=== PATIENT | male | born 1980 | race Two or more races ===

== ENCOUNTER 2016-09-25 08:36 | Emergency (ER) | payer BC ==
[2016-09-25 08:47] VITALS: BP 128/82
[2016-09-25] MEDS ORDERED: Naproxen 500 MG Tab PO ONE (09:05)
[2016-09-25] MEDS ORDERED: Penicillin V Potassium 500 MG Tab PO ONE (09:05)
--- NOTE | 2016-09-25 09:07 | EDM.PDOC ---
ED HPI GENERAL MEDICAL PROBLEM - General Chief Complaint: ENT Problem Stated Complaint: PAIN IN RIGHT SIDE OF FACE Time Seen by Provider: 09/25/16 08:48 Source of Information: Reports: Patient, RN notes reviewed History Limitations: Reports: No Limitations - History of Present Illness INITIAL COMMENTS - FREE TEXT/NARRATIVE: The patient states that she woke up this morning with right upper dental pain and right facial swelling. He states that he had no problem last night. He acknowledges that he has known dental problems for many years, but has not seen a dentist in about 5 years. No recent fever, nausea, vomiting, constipation, or diarrhea. 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 Right Oral/Mouth Pain Score (Numeric/FACES): 8 - Related Data Allergies Allergy/AdvReac Type Severity Reaction Status Date / Time penicillin Allergy Other Verified 09/25/16 08:42 Home Meds: Home Meds Naproxen 500 mg PO Q12H PRN #20 tablet 09/25/16 [Rx] Penicillin V Potassium [IJD: Penicillin V Potassium] 500 mg PO Q6H #40 tab 09/25 [Rx] Past Medical History Musculoskeletal History: Reports: Other (see below) Other Musculoskeletal History: left shoulder dislocation; left wrist fracture - Past Surgical History GI Surgical History: Reports: Hernia, inguinal (bilateral) Musculoskeletal Surgical History: Reports: Other (see below) (Left knee benign tumor excision) Social & Family History - Tobacco Use Smoking Status *Q: Current Every Day Smoker Years of Tobacco use: 21 Packs/Tins Daily: 0.5 - Caffeine Use Caffeine Use: Reports: Coffee, Energy drinks, Tea - Alcohol Use Alcohol Use History: Yes Alcohol Use Frequency: Binges - Recreational Drug Use Recreational Drug Use: No - Living Situation & Occupation Living situation: Reports: , with spouse Occupation: employed ([employer]) ED ROS ENT - Review of Systems Review Of Systems: See Below Constitutional: Reports: No Symptoms HEENT: Reports: No Symptoms Respiratory: Reports: No Symptoms Cardiovascular: Reports: No Symptoms Endocrine: Reports: No Symptoms GI/Abdominal: Reports: No Symptoms : Reports: No Symptoms Musculoskeletal: Reports: No Symptoms Skin: Reports: No Symptoms Neurological: Reports: No Symptoms Psychiatric: Reports: No Symptoms Hematologic/Lymphatic: Reports: No Symptoms Immunologic: Reports: No Symptoms ED EXAM, ENT - Physical Exam Exam: See Below Exam Limited By: No Limitations General Appearance: Alert, WD/WN, No Apparent Distress Eye Exam: Bilateral Eye: Normal Inspection Ears: Normal External Exam, Normal Canal, Hearing Grossly Normal, Normal TMs Nose: Normal Inspection, Normal Mucousa, No Blood Mouth/Throat: Normal Inspection, Normal Lips, Other (Tooth #1 absent. Teeth #3 , 4, 5 with fillings. Gingival swelling noted about teeth # 4 and 5. Tooth # 13 absent. Teeth #14, 15 with fillings. Tooth #18 absent. Tooth #19 with filling. Tooth #29 absent. Tooth #30 with filling. Tooth #31 absent. Tooth # 32 with filling.) Head: Atraumatic, Facial Swelling (right), Facial Tenderness Neck: Normal Inspection, Supple, Non-Tender, Full Range of Motion Psychiatric: Normal Affect Skin: Warm, Dry, Intact, Normal Color, No Rash Lymphatic: No Adenopathy Course - Vital Signs Last Recorded V/S: Last Vital Signs Temp 36.8 C 09/25/16 08:43 Pulse 68 09/25/16 08:43 Resp 18 09/25/16 08:43 BP 128/82 09/25/16 08:43 Pulse Ox 99 09/25/16 08:43 - Orders/Labs/Meds Meds: Medications Discontinued Medications Generic Name Dose Route Start Last Admin Trade Name Elizabeth PRN Reason Stop Dose Admin Naproxen 500 mg 09/25/16 09:05 09/25/16 09:11 Naprosyn PO 09/25/16 09:06 500 mg ONETIME ONE Administration Penicillin V Potassium 500 mg 09/25/16 09:05 09/25/16 09:12 Veetids PO 09/25/16 09:06 500 mg ONETIME ONE Administration - Re-Assessments/Exams Free Text/Narrative Re-Assessment/Exam: 09/25/16 09:06 The patient reports an allergy to penicillin, but states that he was told of a reaction by his mother, but he does not recall ever asked for having had penicillin. It is indicating 96% likelihood that the patient is not allergic to penicillin under the circumstances. The patient has agreed that we will start the patient on penicillin here today. I will keep him in the ER for about half an hour to observe if he has any reaction. If he does not, we'll discharge him home with prescriptions for penicillin and naproxen. The need to followup with a dentist was emphasized. 09/25/16 09:46 It has been over 30 minutes since the patient was given oral penicillin, with no adverse reaction. He is not allergic to penicillin. He will be discharged home with a prescription for penicillin and naproxen, along with a list of dentists. Departure - Departure Time of Disposition: 09:47 Disposition: Home, Self-Care 01 Condition: fair Clinical Impression: Dental infection - Discharge Information Prescriptions: Naproxen 500 mg PO Q12H PRN #20 tablet PRN Reason: Pain Penicillin V Potassium [IJD: Penicillin V Potassium] 500 mg PO Q6H #40 tab Instructions: Dental Abscess, [id number] Referrals: PCP,None [Primary Care Provider] - Forms: ED Department Discharge Additional Instructions: You were seen in the emergency room for right upper dental pain and right facial swelling. On examination, it appears that you have a dental infection. You have been started on the antibiotic penicillin. Take one tablet every 6 hours, as prescribed. Finish the entire prescription unless told otherwise by a dentist. You have been started on the pain medicine naproxen. Take one tablet every 12 hours, with food, as prescribed. It is IMPERATIVE that you followup with a dentist as soon as possible. You have been provided a list of dentists. The medicines that you have been prescribed will not cure the underlying infection. If any other problems, please do not hesitate to return to the ER.
== END 2016-09-25 10:01 | disposition home or self-care (01) ==
LOC: JD.ED 08:36
DX: K04.7 Periapical abscess without sinus (principal); F17.210 Nicotine dependence, cigarettes, uncomplicated; Z88.0 Allergy status to penicillin
CPT/HCPCS: 99283; A9270

== ENCOUNTER 2016-11-05 17:29 | Emergency (ER) | payer BC ==
[2016-11-05 17:56] VITALS: BP 126/88
--- NOTE | 2016-11-05 18:23 | EDM.PDOC ---
ED HPI GENERAL MEDICAL PROBLEM - General Chief Complaint: Chest Pain Stated Complaint: RIB INJURY Time Seen by Provider: 11/05/16 18:00 Source of Information: Reports: Patient History Limitations: Reports: No Limitations - History of Present Illness INITIAL COMMENTS - FREE TEXT/NARRATIVE: 36-year-old male presents the ED with complaints of left rib pain. He reports he was injured in the workplace 2 days ago. He was struck by the butt end of a piece of drill stem pipe accidentally. He has had trouble breathing ever since time of injury. He states that he was knocked to the floor but he did was not knocked off the platform. He is pain is much worse today. He denies hemoptysis or cough. He has he also has an injury to the left hand with prominence of the third MCP joint from a work-related injury over a month ago. He was when if he could get an x-ray of his hand. splinting respirations on the left side. Onset Date: 11/03/16 Duration: Day(s): Location: Reports: Chest Quality: Reports: Sharp, Stabbing Severity: Moderate Improves with: Reports: Rest Worsens with: Reports: Other, Movement Context: Reports: Trauma. Denies: Activity (Deep breaths), Exercise, Lifting, Sick Contact, Other (Blunt force trauma in the workplace) Associated Symptoms: Reports: Chest Pain. 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 Chest Pain Score (Numeric/FACES): 10 - Related Data Allergies Allergy/AdvReac Type Severity Reaction Status Date / Time No Known Allergies Allergy Verified 11/05/16 17:53 Home Meds: Home Meds Naproxen 500 mg PO Q12H PRN #20 tablet 09/25/16 [Rx] Penicillin V Potassium [IJD: Penicillin V Potassium] 500 mg PO Q6H #40 tab 09/25 [Rx] oxyCODONE HCl/Acetaminophen [Percocet 5-325 mg Tablet] 1 - 2 each PO Q4H PRN # 24 tablet 11/05/16 [Rx] Past Medical History - Past Health History Medical/Surgical History: Denies Medical/Surgical History Musculoskeletal History: Reports: Other (See Below) Other Musculoskeletal History: left shoulder dislocation; left wrist fracture - Past Surgical History GI Surgical History: Reports: Hernia, Inguinal Musculoskeletal Surgical History: Reports: Other (See Below) Social & Family History - Tobacco Use Smoking Status *Q: Current Every Day Smoker Years of Tobacco use: 20 Packs/Tins Daily: 0.5 Used Tobacco, but Quit: No - Caffeine Use Caffeine Use: Reports: Coffee, Energy Drinks, Soda, Tea - Recreational Drug Use Recreational Drug Use: No - Living Situation & Occupation Living situation: Reports: , with Spouse Occupation: Employed ED ROS GENERAL - Review of Systems Review Of Systems: See Below Constitutional: Denies: Fever, Chills, Malaise, Weakness, Fatigue, Decreased Appetite, Weight Loss HEENT: Reports: No Symptoms Respiratory: Reports: Shortness of Breath, Pleuritic Chest Pain, Other (Every breath hurts any pleuritic pain left chest wall). Denies: Cough, Sputum Cardiovascular: Reports: No Symptoms Endocrine: Reports: No Symptoms GI/Abdominal: Reports: No Symptoms Musculoskeletal: Reports: Other (Left chest wall pain from rib injury. Has swelling and deformity of the 3rd MCP joint of his left hand. This injury as a month or more old.) Skin: Reports: No Symptoms Neurological: Reports: No Symptoms Psychiatric: Reports: No Symptoms Hematologic/Lymphatic: Reports: No Symptoms Immunologic: Reports: No Symptoms ED EXAM, GENERAL - Physical Exam Exam: See Below Exam Limited By: Language Barrier General Appearance: Alert (Mild language barrier.), WD/WN, Mild Distress (He is splinting respirations on the left side) Eye Exam: Bilateral Eye: Normal Inspection Throat/Mouth: Normal Inspection, Normal Lips, Normal Oropharynx Head: Atraumatic, Normocephalic Neck: Normal Inspection, Supple, Non-Tender, Full Range of Motion. No: Lymphadenopathy (L), Lymphadenopathy (R) Respiratory/Chest: Normal Breath Sounds, Respiratory Distress, Splinting (On the left side), Other (Very tender to touch from ribs 5-8 mid axillary line on the left side. No obvious deformities contusions or abrasions are appreciated this area. Of note he is a very small stature 0 easily visible under the skin. No subcutaneous emphysema evident.) Cardiovascular: Normal Peripheral Pulses, Regular Rate, Rhythm, No Edema, No Murmur Back Exam: Normal Inspection, Full Range of Motion. No: CVA Tenderness (L), CVA Tenderness (R) Extremities: Redness, Other (Has swelling of the MCP joint third of the left hand but with a healing fracture.) Neurological: Alert, Oriented, CN II-XII Intact, Normal Cognition, Normal Gait, Normal Reflexes, No Motor/Sensory Deficits Psychiatric: Normal Affect, Normal Mood Skin Exam: Warm, Dry, Intact, Normal Color, No Rash Course - Vital Signs Last Recorded V/S: Last Vital Signs Temp 36.8 C 11/05/16 17:53 Pulse 94 11/05/16 17:53 Resp 18 11/05/16 17:53 BP 126/88 11/05/16 17:53 Pulse Ox 96 11/05/16 17:53 - Orders/Labs/Meds Orders: Active Orders 24 hr Category Date Time Status Hand Comp Min 3V Lt [CR] Stat Exams 11/05/16 18:05 Taken Ribs 2V w Chest Lt [CR] Stat Exams 11/05/16 18:03 Taken - Radiology Interpretation Free Text/Narrative:: 36-year-old male reports to the ED with a work-related injury that occurred 2 days ago. He states he was struck by a piece of drill stem in the left axilla injuring his ribs [address] Catalan but it did not did not knock him off the platform. He has pain with every inspiration. On examination he is a thin stature and no obvious contusions abrasions or hematomas evident in the left axilla. Pain is from ribs 5-8 midaxillary line. He also has swelling of the third MCP joint of his left hand from an injury in the workplace a month ago. He is requesting x-ray of the hand as well. Plan chest x-ray with left rib detail. X-ray left hand 3 view. - Re-Assessments/Exams Free Text/Narrative Re-Assessment/Exam: 11/05/16 18:36 x-rays of the chest and extra views of the left ribs do not reveal any fractures or pneumothorax or pulmonary contusion. X-rays of his left and also proved to be negative for any fracture in the head of the third metacarpal. He will thus be treated conservatively. I did advise him if the swelling of the third metacarpal does not go back to normal in the next 6 months then he does need assessment for rheumatoid arthritis. However he claims that the injury first occurred from direct blow to the area or trauma. I will give him Percocet 5//25 tablets to be used 1 tablet every 4-6 hours as necessary for pain relief. 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 He reports he is off job for the next few days anyways. Departure - Departure Time of Disposition: 18:48 Disposition: Home, Self-Care 01 Condition: Fair Clinical Impression: Contusion of rib on left side Qualifiers: Encounter type: initial encounter Qualified Code(s): S20.212A - Contusion of left front wall of thorax, initial encounter Contusion of left hand Qualifiers: Encounter type: initial encounter Qualified Code(s): S60.222A - Contusion of left hand, initial encounter Prescriptions: oxyCODONE HCl/Acetaminophen [Percocet 5-325 mg Tablet] 1 - 2 each PO Q4H PRN # 24 tablet PRN Reason: pain relief. Instructions: Rib Contusion Referrals: PCP,None [Primary Care Provider] - Forms: ED Department Discharge Additional Instructions: Evaluation in the emergency room today in regards to blunt trauma to the left rib cage that occurred 2 days ago in the workplace. X-rays of the ribs with rib detail did not reveal any broken ribs. Therefore blunt trauma has occurred causing bruised ribs only. It will still take 10-14 days to fully recover from this injury. Suggest Aleve 2 tablets every 8 hours and may use Percocet tablets one or 2 every 6 hours for pain relief if needed. Of note it's unlikely that he will be allowed to work on the [facility] site if you have strong pain medication on board. X-ray of your left hand did not reveal any fractures in the hand either. There is marked swelling of the third metacarpal head which appears to be secondary to traumatic effusion or injury to the joint. However if it does not settle down over the next 6 months then you would need lab tests to rule out the beginnings of rheumatoid arthritis. - My Orders Last 24 Hours: My Active Orders 11/05/16 18:03 Ribs 2V w Chest Lt [CR] Stat 11/05/16 18:05 Hand Comp Min 3V Lt [CR] Stat - Assessment/Plan Last 24 Hours: My Active Orders 11/05/16 18:03 Ribs 2V w Chest Lt [CR] Stat 11/05/16 18:05 Hand Comp Min 3V Lt [CR] Stat
--- NOTE | 2016-11-06 07:43 | CR ---
Left hand: Four views of the left hand were obtained. Comparison: No previous study. No fracture, dislocation or other bony abnormality is seen. Impression: 1. No abnormality is identified on left hand study. Diagnostic code #1
--- NOTE | 2016-11-06 07:43 | CR ---
Chest and left ribs: Frontal view of the chest was obtained as well as 2 views of the left ribs. Comparison: No previous study. Heart size and mediastinum are normal. Lungs are clear. No pneumothorax is seen. No discrete fracture or left-sided rib abnormality is appreciated. Impression: 1. Nothing acute is identified on frontal chest x-ray. No discrete left-sided rib abnormality is appreciated. Nondisplaced fracture could be missed. Diagnostic code #1
== END 2016-11-05 19:00 | disposition home or self-care (01) ==
LOC: JD.ED 17:29
DX: S20.212A Contusion of left front wall of thorax, initial encounter (principal); S60.222A Contusion of left hand, initial encounter; F17.210 Nicotine dependence, cigarettes, uncomplicated; Z98.890 Other specified postprocedural states; W22.8XXA Striking against or struck by other objects, initial encounter
CPT/HCPCS: 71101-26-LT; 71101-LT; 73130-26-LT; 73130-LT; 99283

== ENCOUNTER 2017-08-18 16:08 | Emergency (ER) | payer BC ==
[2017-08-18 16:20] VITALS: BP 114/80
[2017-08-18] MEDS ORDERED: Orphenadrine 100 MG Tab.ER PO STA (16:57)
[2017-08-18] MEDS ORDERED: Ketorolac 60 MG/2 ML SDV IM ONE (16:57)
--- NOTE | 2017-08-18 17:07 | EDM.PDOC ---
ED HPI GENERAL MEDICAL PROBLEM - General Chief Complaint: Back Pain or Injury Stated Complaint: BACK PAIN Time Seen by Provider: 08/18/17 16:40 Source of Information: Reports: Patient History Limitations: Reports: No Limitations, Language Barrier (patient speaks sao tomean but question comprehension) - History of Present Illness INITIAL COMMENTS - FREE TEXT/NARRATIVE: 36-year-old male presents for evaluation and treatment of mid to lower back pain. Patient reports that the back pain started this morning. States it woke him from sleep. States is primarily located on the left side. Has trouble describing the type of pain. Denies any previous back problems. Denies any recent trauma. No nausea, vomiting, dysuria, hematuria, numbness or tingling to the legs. 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 States he tried some Tylenol earlier for the pain but cannot be relief with this. 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 08/18/17 [Rx] Orphenadrine [Norflex] 100 mg PO BID PRN #20 tab.er 08/18/17 [Rx] Past Medical History - Past Health History Medical/Surgical History: Denies Medical/Surgical History Musculoskeletal History: Reports: Other (See Below) Other Musculoskeletal History: left shoulder dislocation; left wrist fracture - Past Surgical History GI Surgical History: Reports: Hernia, Inguinal Musculoskeletal Surgical History: Reports: Other (See Below) Social & Family History - Tobacco Use Smoking Status *Q: Current Every Day Smoker Years of Tobacco use: 20 Packs/Tins Daily: 0.5 Used Tobacco, but Quit: No - Caffeine Use Caffeine Use: Reports: Coffee, Energy Drinks, Soda, Tea - Recreational Drug Use Recreational Drug Use: No - Living Situation & Occupation Living situation: Reports: , with Spouse Occupation: Employed ED ROS GENERAL - Review of Systems Review Of Systems: See Below Constitutional: Denies: Fever, Chills GI/Abdominal: Denies: Abdominal Pain, Nausea, Vomiting : Denies: Dysuria, Hematuria, Incontinence Musculoskeletal: Reports: Back Pain (left mid to lower back) Neurological: Denies: Numbness, Tingling ED EXAM,LOWER BACK PAIN/INJURY - Physical Exam Exam: See Below Exam Limited By: No Limitations General Appearance: Alert, WD/WN, Moderate Distress, Thin Respiratory/Chest: No Respiratory Distress, Lungs Clear, Normal Breath Sounds Cardiovascular: Normal Peripheral Pulses, Regular Rate, Rhythm, No Murmur GI/Abdominal: Soft, Non-Tender Back Exam: Normal Inspection, Muscle Spasm (t10-l3 left), Paraspinal Tenderness (t10-l3 left). No: Vertebral Tenderness Extremities: Normal Inspection Neurological: Alert, Normal Mood/Affect, Normal Dorsiflexion, Normal Plantar Flexion, Normal Gait. No: Straight Leg Raise (L), Straight Leg Raise (R) Psychiatric: Normal Affect, Normal Mood Skin Exam: Warm, Dry, Normal Color Course - Vital Signs Last Recorded V/S: Last Vital Signs Temp 36.9 C 08/18/17 16:18 Pulse 66 08/18/17 16:18 Resp BP 114/80 08/18/17 16:18 Pulse Ox 9 L 08/18/17 16:18 - Orders/Labs/Meds Labs: Laboratory Tests 08/18/17 Range/Units 17:00 Urine Color Light yellow (Yellow) Urine Appearance Clear (Clear) Urine pH 6.0 (5.0-8.0) Ur Specific [place] 1.025 (1.005-1.030) Urine Protein Negative (Negative) Urine Glucose (UA) Negative (Negative) Urine Ketones Negative (Negative) Urine Occult Blood 1+ H (Negative) Urine Nitrite Negative (Negative) Urine Bilirubin Negative (Negative) Urine Urobilinogen 0.2 (0.2-1.0) Ur Leukocyte Esterase Negative (Negative) Urine RBC 0-5 (0-5) /hpf Urine WBC Not seen (0-5) /hpf Ur Epithelial Cells 0-5 (0-5) /hpf Urine Bacteria Not seen (FEW) /hpf Urine Mucus Not seen (FEW) /hpf Meds: Medications Discontinued Medications Generic Name Dose Route Start Last Admin Trade Name Freq PRN Reason Stop Dose Admin Ketorolac Tromethamine 60 mg 08/18/17 16:57 08/18/17 17:09 Toradol IM 08/18/17 16:58 60 mg ONETIME ONE Administration Orphenadrine Citrate 100 mg 08/18/17 16:57 08/18/17 17:08 Norflex PO 08/18/17 16:58 100 mg NOW STA Administration - Re-Assessments/Exams Free Text/Narrative Re-Assessment/Exam: 08/18/17 17:56 The patient is resting comfortably at this time. Reports significant pain improvement with the Norflex IM Toradol. Consider getting a CT to rule out a kidney stone but he is comfortable at this time and I feel that this is less likely. More likely muscle spasm. We'll discharge him home with a muscle relaxer and naproxen. Departure - Departure Time of Disposition: 17:57 Disposition: Home, Self-Care 01 Condition: Fair Clinical Impression: Back pain Qualifiers: Back pain location: low back pain Chronicity: acute Back pain laterality: left Sciatica presence: without sciatica Qualified Code(s): M54.5 - Low back pain - Discharge Information Prescriptions: Naproxen 500 mg PO BID PRN #[address] GERARD Reason: Pain Orphenadrine [Norflex] 100 mg PO BID PRN #20 tab.er PRN Reason: Muscle Spasm Instructions: Back Pain, Adult Referrals: PCP,None [Primary Care Provider] - Forms: ED Department Discharge, ED Return to Work/School Form Additional Instructions: Take the naproxen 1 tab twice a day as a for pain. Norflex 1 tab twice a day as needed for muscle pain and spasm. Recommend using heat to back for additional pain relief. Note given for work. Expect to have discomfort for the few days. If this persists beyond 1-2 weeks follow-up with family medicine. Recommend Dr. Whiteside at the [facility]. Call [phone] to schedule with him. Please return to the ER for symptoms change or worsen.
== END 2017-08-18 18:22 | disposition home or self-care (01) ==
LOC: JD.ED 16:08
DX: M54.5 Low back pain (principal); F17.210 Nicotine dependence, cigarettes, uncomplicated
CPT/HCPCS: 81001; 96372; 99283; A9270; J1885

== ENCOUNTER 2017-08-29 14:53 | Emergency (ER) | payer BC ==
[2017-08-29 15:10] VITALS: BP 122/70
[2017-08-29] MEDS ORDERED: Diphtheria,Pertussis(Acell),Tetanus Vaccine 0.5 ML SDV IM ONE (15:24)
[2017-08-29] MEDS ORDERED: Lidocaine 1% 50 ML MDV INJECT ONE (15:25)
--- NOTE | 2017-08-29 15:27 | EDM.PDOC ---
ED HPI GENERAL MEDICAL PROBLEM - General Chief Complaint: Laceration Stated Complaint: LEFT HAND LAC Time Seen by Provider: 08/29/17 15:20 Source of Information: Reports: Patient History Limitations: Reports: No Limitations - History of Present Illness INITIAL COMMENTS - FREE TEXT/NARRATIVE: Patient is a 36-year-old male who presents the ED complaining of a laceration to the base the left thumb. States he was opening a door with a sharp knife and in the process accidentally cut/stabbed himself in the thumb with the tip of the knife. He has full range of motion. No sensory deficits. Tetanus status is not up-to-date. Bleeding controlled. Minimal pain. He has No additional complaints. This was a clean kitchen knife. Left Hand Pain Score (Numeric/FACES): 8 - Related Data Allergies Allergy/AdvReac Type Severity Reaction Status Date / Time No Known Allergies Allergy Verified 08/29/17 15:11 Home Meds: Home Meds Naproxen 500 mg PO BID PRN #20 tablet.dr 08/18/17 [Rx] Orphenadrine [Norflex] 100 mg PO BID PRN #20 tab.er 08/18/17 [Rx] Past Medical History - Past Health History Medical/Surgical History: Denies Medical/Surgical History Musculoskeletal History: Reports: Other (See Below) Other Musculoskeletal History: left shoulder dislocation; left wrist fracture - Past Surgical History GI Surgical History: Reports: Hernia, Inguinal Musculoskeletal Surgical History: Reports: Other (See Below) Social & Family History - Tobacco Use Smoking Status *Q: Current Every Day Smoker Years of Tobacco use: 15 Packs/Tins Daily: 0.5 Used Tobacco, but Quit: No - Caffeine Use Caffeine Use: Reports: Coffee, Energy Drinks - Recreational Drug Use Recreational Drug Use: No - Living Situation & Occupation Living situation: Reports: , with Spouse Occupation: Employed ED ROS GENERAL - Review of Systems Review Of Systems: ROS reveals no pertinent complaints other than HPI. ED EXAM, SKIN/RASH Exam: See Below Exam Limited By: No Limitations General Appearance: Alert, WD/WN, No Apparent Distress Ears: Hearing Grossly Normal Nose: Normal Inspection Throat/Mouth: Normal Voice, No Airway Compromise Neck: Normal Inspection, Supple Respiratory/Chest: No Respiratory Distress, No Accessory Muscle Use Cardiovascular: Normal Peripheral Pulses, Regular Rate, Rhythm Peripheral Pulses: 4+: Radial (L) Extremities: Other (Approximately 2 cm deep laceration to the base the left thumb on the palmar side. No bleeding present. Patient has full range of motion including: Abduction and adduction flexion-extension of the thumb. No sensory deficits distally. Minimal discomfort on palpation.) Neurological: Alert, Oriented, CN II-XII Intact, Normal Cognition, No Motor/ Sensory Deficits Psychiatric: Normal Affect, Normal Mood Skin: Warm, Dry ED SKIN PROCEDURES - Laceration/Wound Repair Left Finger Lac/Wound length In cm: 2 (left thumb) Appearance: Subcutaneous, Clean Distal NVT: Neuro & Vascular Intact, No Tendon Injury Anesthetic Type: Local Local Anesthesia - Lidocaine (Xylocaine): 1% Plain Local Anesthetic Volume: 5cc Skin Prep: Chlorhexidine (Hibiciens), Saline, Sterile Drape Exploration/Debridement/Repair: Wound Explored, In a Bloodless Field, Explored to Base, No Foreign Material Found Closed with: Sutures Suture Size: 4-0 # of Sutures: 4 Suture Type: Prolene, Interrupted, Simple Drain Placement: No Sterile Dressing Applied: Nurse Tetanus Status Addressed: Yes Complications: No Course - Vital Signs Last Recorded V/S: Last Vital Signs Temp 98.4 F 08/29/17 15:06 Pulse 102 H 08/29/17 15:06 Resp 12 08/29/17 15:06 BP 122/70 08/29/17 15:06 Pulse Ox 99 08/29/17 15:06 - Orders/Labs/Meds Meds: Medications Discontinued Medications Generic Name Dose Route Start Last Admin Trade Name Freq PRN Reason Stop Dose Admin Diphtheria/Tetanus/Acell Pertussis 0.5 ml 08/29/17 15:24 08/29/17 15:47 Adacel IM 08/29/17 15:25 0.5 ml .ONCE ONE Administration Lidocaine HCl 50 ml 08/29/17 15:25 08/29/17 15:50 Xylocaine 1% INJECT 08/29/17 15:26 50 ml ONETIME ONE Administration - Re-Assessments/Exams Free Text/Narrative Re-Assessment/Exam: Ordered x-ray of the left thumb, lidocaine 1%, and Adacel IM. X-ray of the left thumb did not reveal any acute bony abnormalities. Laceration closed with no complications. Discharge instructions as documented. Departure - Departure Time of Disposition: 16:12 Disposition: Home, Self-Care 01 Condition: Good Clinical Impression: Laceration of thumb Qualifiers: Encounter type: initial encounter Damage to nail status: without damage Foreign body presence: without foreign body Laterality: left Qualified Code(s): S61.012A - Laceration without foreign body of left thumb without damage to nail , initial encounter - Discharge Information Instructions: Laceration Care, Adult, [id number], Stitches, Jose Francisco, or Adhesive Wound Closure, [id number] Referrals: PCP,None [Primary Care Provider] - Forms: ED Department Discharge Additional Instructions: Cleanse site twice daily with soap and water, pat dry, reapply Triple Antibiotic ointment and dressing. Take Tylenol and ibuprofen in alternating fashion for pain. Refrain from soaking the wound. Keep area clean and dry. Sutures come out in 10 days. See a provider at the [facility] to have them removed. Return to the ED if you develop any new or worsening symptoms.
--- NOTE | 2017-08-30 14:55 | CR ---
Left thumb: Three views of the left thumb were obtained. Comparison: Prior left hand exam of 11/05/16. Joint spaces are maintained within the left thumb. No fracture, dislocation or other bony abnormality is seen. Impression: 1. No abnormality is appreciated on three-view left thumb study. Diagnostic code #1
== END 2017-08-29 16:26 | disposition home or self-care (01) ==
LOC: JD.ED 14:53
DX: S61.012A Laceration without foreign body of left thumb without damage to nail, initial encounter (principal); F17.210 Nicotine dependence, cigarettes, uncomplicated; Z79.899 Other long term (current) drug therapy; Z23 Encounter for immunization; W26.0XXA Contact with knife, initial encounter
CPT/HCPCS: 12001; 73140-26-FA; 73140-FA; 90471; 90715; 99282-25; 99283-25

== ENCOUNTER 2017-11-24 17:13 | Observation (INO) | payer BC ==
[2017-11-24] MEDS ORDERED: Metoclopramide 10 MG/2 ML SDV IVPUSH ONE (17:27)
[2017-11-24] MEDS ORDERED: HYDROmorphone 0.5 MG/0.5 ML SYRINGE IVPUSH ONE (17:28)
[2017-11-24] MEDS ORDERED: Ketorolac 30 MG/ML SDV IVPUSH SCH (17:30)
[2017-11-24] MEDS: Dextrose 5%-Lactated Ringers 1,000 ML IV SCH ×2 (17:34→18:32)
--- NOTE | 2017-11-24 17:36 | EDM.PDOC ---
<Cheng Carlson - Last Filed: 11/24/17 22:21> ED HPI GENERAL MEDICAL PROBLEM - General Chief Complaint: Respiratory Problem Stated Complaint: HARD TO BREATHE Time Seen by Provider: 11/24/17 17:27 - Related Data Allergies Allergy/AdvReac Type Severity Reaction Status Date / Time No Known Allergies Allergy Verified 11/24/17 17:18 Home Meds: Home Meds Acetaminophen/HYDROcodone [[place] 325-5 MG] 1 tab PO Q6H #10 tablet 11/25/17 [Rx] Naproxen 375 mg PO BID #6 tablet. 11/25/17 [Rx] Course - Vital Signs Last Recorded V/S: Last Vital Signs Temp 36.5 C 11/25/17 12:17 Pulse 64 11/25/17 12:17 Resp 16 11/25/17 12:17 BP 108/61 11/25/17 12:17 Pulse Ox 98 11/25/17 12:17 - Orders/Labs/Meds Labs: Laboratory Tests 11/24/17 11/24/17 11/24/17 Range/Units 17:30 17:30 17:30 WBC 18.44 H (4.23-9.07) K/mm3 RBC 5.23 (4.63-6.08) M/mm3 Hgb 16.7 (13.7-17.5) gm/L Hct 49.2 (40.1-51.0) % MCV 94.1 H (79.0-92.2) fl MCH 31.9 (25.7-32.2) pg MCHC 33.9 (32.2-35.5) g/dl RDW Std Deviation 45.9 H (35.1-43.9) fL Plt Count 270 (163-337) K/mm3 MPV 10.3 (9.4-12.3) fl Neutrophils % (Manual) 79 H (40-60) % Band Neutrophils % 0 (0-10) % Lymphocytes % (Manual) 16 L (20-40) % Atypical Lymphs % 0 % Monocytes % (Manual) 5 (2-10) % Eosinophils % (Manual) 0 L (0.8-7.0) % Basophils % (Manual) 0 L (0.2-1.2) Platelet Estimate Adequate Plt Morphology Comment Normal RBC Morph Comment Normal Sodium 136 (136-145) mEq/L Potassium 4.6 (3.5-5.1) mEq/L Chloride 92 L (98-107) mEq/L Carbon Dioxide 25 (21-32) mEq/L Anion Gap 23.6 H (5-15) BUN 28 H (7-18) mg/dL Creatinine 3.4 H (0.7-1.3) mg/dL Est Cr Clr Drug Dosing 25.05 mL/min Estimated GFR (MDRD) 21 (>60) mL/min BUN/Creatinine Ratio 8.2 L (14-18) Glucose 103 (74-106) mg/dL Serum Osmolality 304 H (280-300) mosm/kg Calcium 11.8 H (8.5-10.1) mg/dL Magnesium 2.1 (1.8-2.4) mg/dl Total Bilirubin 1.4 H (0.2-1.0) mg/dL AST 56 H (15-37) U/L ALT 43 (16-63) U/L Alkaline Phosphatase 113 (46-116) U/L Lactate Dehydrogenase (85-227) U/L Creatine Kinase 1531 H (39-308) U/L Myoglobin (17-106) ng/mL Total Protein 11.0 H (6.4-8.2) g/dl Albumin 5.9 H (3.4-5.0) g/dl Globulin 5.1 gm/dL Albumin/Globulin Ratio 1.2 (1-2) Urine Color (Yellow) Urine Appearance (Clear) Urine pH (5.0-8.0) Ur Specific [place] (1.005-1.030) Urine Protein (Negative) Urine Glucose (UA) (Negative) Urine Ketones (Negative) Urine Occult Blood (Negative) Urine Nitrite (Negative) Urine Bilirubin (Negative) Urine Urobilinogen (0.2-1.0) Ur Leukocyte Esterase (Negative) Urine RBC (0-5) /hpf Urine WBC (0-5) /hpf Ur Epithelial Cells (0-5) /hpf Amorphous Sediment (NOT SEEN) /hpf Urine Bacteria (FEW) /hpf Urine Mucus (FEW) /hpf Urine Opiates Screen (NEGATIVE) Ur Buprenorphine Scrn (NEGATIVE) Ur Oxycodone Screen (NEGATIVE) Urine Methadone Screen (NEGATIVE) Ur Propoxyphene Screen (NEGATIVE) Ur Barbiturates Screen (NEGATIVE) Ur Tricyclics Screen (NEGATIVE) Ur Phencyclidine Scrn (NEGATIVE) Ur Amphetamine Screen (NEGATIVE) U Methamphetamines Scrn (NEGATIVE) U Benzodiazepines Scrn (NEGATIVE) U Cocaine Metab Screen (NEGATIVE) U Marijuana (THC) Screen (NEGATIVE) Ethyl Alcohol (0.00) gm% 11/24/17 11/24/17 11/24/17 Range/Units 17:30 17:30 20:11 WBC (4.23-9.07) K/mm3 RBC (4.63-6.08) M/mm3 Hgb (13.7-17.5) gm/L Hct (40.1-51.0) % MCV (79.0-92.2) fl MCH (25.7-32.2) pg MCHC (32.2-35.5) g/dl RDW Std Deviation (35.1-43.9) fL Plt Count (163-337) K/mm3 MPV (9.4-12.3) fl Neutrophils % (Manual) (40-60) % Band Neutrophils % (0-10) % Lymphocytes % (Manual) (20-40) % Atypical Lymphs % % Monocytes % (Manual) (2-10) % Eosinophils % (Manual) (0.8-7.0) % Basophils % (Manual) (0.2-1.2) Platelet Estimate Plt Morphology Comment RBC Morph Comment Sodium (136-145) mEq/L Potassium (3.5-5.1) mEq/L Chloride (98-107) mEq/L Carbon Dioxide (21-32) mEq/L Anion Gap (5-15) BUN (7-18) mg/dL Creatinine (0.7-1.3) mg/dL Est Cr Clr Drug Dosing mL/min Estimated GFR (MDRD) (>60) mL/min BUN/Creatinine Ratio (14-18) Glucose (74-106) mg/dL Serum Osmolality (280-300) mosm/kg Calcium (8.5-10.1) mg/dL Magnesium (1.8-2.4) mg/dl Total Bilirubin (0.2-1.0) mg/dL AST (15-37) U/L ALT (16-63) U/L Alkaline Phosphatase (46-116) U/L Lactate Dehydrogenase 291 H (85-227) U/L Creatine Kinase (39-308) U/L Myoglobin (17-106) ng/mL Total Protein (6.4-8.2) g/dl Albumin (3.4-5.0) g/dl Globulin gm/dL Albumin/Globulin Ratio (1-2) Urine Color Yellow (Yellow) Urine Appearance Clear (Clear) Urine pH 6.5 (5.0-8.0) Ur Specific [place] 1.015 (1.005-1.030) Urine Protein 2+ H (Negative) Urine Glucose (UA) 1+ H (Negative) Urine Ketones Negative (Negative) Urine Occult Blood 3+ H (Negative) Urine Nitrite Negative (Negative) Urine Bilirubin Negative (Negative) Urine Urobilinogen 0.2 (0.2-1.0) Ur Leukocyte Esterase Negative (Negative) Urine RBC 5-10 H (0-5) /hpf Urine WBC 5-10 H (0-5) /hpf Ur Epithelial Cells 5-10 H (0-5) /hpf Amorphous Sediment Few H (NOT SEEN) /hpf Urine Bacteria Few (FEW) /hpf Urine Mucus Not seen (FEW) /hpf Urine Opiates Screen (NEGATIVE) Ur Buprenorphine Scrn (NEGATIVE) Ur Oxycodone Screen (NEGATIVE) Urine Methadone Screen (NEGATIVE) Ur Propoxyphene Screen (NEGATIVE) Ur Barbiturates Screen (NEGATIVE) Ur Tricyclics Screen (NEGATIVE) Ur Phencyclidine Scrn (NEGATIVE) Ur Amphetamine Screen (NEGATIVE) U Methamphetamines Scrn (NEGATIVE) U Benzodiazepines Scrn (NEGATIVE) U Cocaine Metab Screen (NEGATIVE) U Marijuana (THC) Screen (NEGATIVE) Ethyl Alcohol 0.00 (0.00) gm% 11/24/17 11/24/17 11/24/17 Range/Units 20:11 20:59 20:59 WBC (4.23-9.07) K/mm3 RBC (4.63-6.08) M/mm3 Hgb (13.7-17.5) gm/L Hct (40.1-51.0) % MCV (79.0-92.2) fl MCH (25.7-32.2) pg MCHC (32.2-35.5) g/dl RDW Std Deviation (35.1-43.9) fL Plt Count (163-337) K/mm3 MPV (9.4-12.3) fl Neutrophils % (Manual) (40-60) % Band Neutrophils % (0-10) % Lymphocytes % (Manual) (20-40) % Atypical Lymphs % % Monocytes % (Manual) (2-10) % Eosinophils % (Manual) (0.8-7.0) % Basophils % (Manual) (0.2-1.2) Platelet Estimate Plt Morphology Comment RBC Morph Comment Sodium 136 (136-145) mEq/L Potassium 4.0 (3.5-5.1) mEq/L Chloride 99 (98-107) mEq/L Carbon Dioxide 24 (21-32) mEq/L Anion Gap 17.0 H (5-15) BUN 27 H (7-18) mg/dL Creatinine 2.8 H (0.7-1.3) mg/dL Est Cr Clr Drug Dosing 30.42 mL/min Estimated GFR (MDRD) 26 (>60) mL/min BUN/Creatinine Ratio 9.6 L (14-18) Glucose 117 H (74-106) mg/dL Serum Osmolality (280-300) mosm/kg Calcium 9.3 (8.5-10.1) mg/dL Magnesium (1.8-2.4) mg/dl Total Bilirubin 0.7 (0.2-1.0) mg/dL AST 44 H (15-37) U/L ALT 32 (16-63) U/L Alkaline Phosphatase 78 (46-116) U/L Lactate Dehydrogenase (85-227) U/L Creatine Kinase 1517 H (39-308) U/L Myoglobin 1047 H (17-106) ng/mL Total Protein 7.5 (6.4-8.2) g/dl Albumin 3.8 (3.4-5.0) g/dl Globulin 3.7 gm/dL Albumin/Globulin Ratio 1.0 (1-2) Urine Color (Yellow) Urine Appearance (Clear) Urine pH (5.0-8.0) Ur Specific [place] (1.005-1.030) Urine Protein (Negative) Urine Glucose (UA) (Negative) Urine Ketones (Negative) Urine Occult Blood (Negative) Urine Nitrite (Negative) Urine Bilirubin (Negative) Urine Urobilinogen (0.2-1.0) Ur Leukocyte Esterase (Negative) Urine RBC (0-5) /hpf Urine WBC (0-5) /hpf Ur Epithelial Cells (0-5) /hpf Amorphous Sediment (NOT SEEN) /hpf Urine Bacteria (FEW) /hpf Urine Mucus (FEW) /hpf Urine Opiates Screen Negative (NEGATIVE) Ur Buprenorphine Scrn Negative (NEGATIVE) Ur Oxycodone Screen Negative (NEGATIVE) Urine Methadone Screen Negative (NEGATIVE) Ur Propoxyphene Screen Negative (NEGATIVE) Ur Barbiturates Screen Negative (NEGATIVE) Ur Tricyclics Screen Negative (NEGATIVE) Ur Phencyclidine Scrn Negative (NEGATIVE) Ur Amphetamine Screen Negative (NEGATIVE) U Methamphetamines Scrn Negative (NEGATIVE) U Benzodiazepines Scrn Negative (NEGATIVE) U Cocaine Metab Screen Negative (NEGATIVE) U Marijuana (THC) Screen Negative (NEGATIVE) Ethyl Alcohol (0.00) gm% Meds: Medications Discontinued Medications Generic Name Dose Route Start Last Admin Trade Name Freq PRN Reason Stop Dose Admin Acetaminophen 650 mg 11/24/17 23:26 Tylenol PO Q4H PRN Fever Acetaminophen/Butalbital/Caffeine 1 tab 11/25/17 12:51 11/25/17 13:04 Fioricet 325-50-40 Mg PO 1 tab Q6H PRN Administration Headache Albuterol/Ipratropium 3 ml 11/24/17 23:21 Duoneb 3.0-0.5 Mg/3 Ml NEB Q4H PRN Shortness Of Breath/wheezing Bisacodyl 5 mg 11/24/17 23:21 Dulcolax PO DAILY PRN Constipation Chlordiazepoxide HCl 25 mg 11/24/17 23:23 Librium PO Q8H PRN Withdrawal Symptoms Clonidine HCl 0.1 mg 11/24/17 23:23 Catapres PO Q4H PRN Agitation Docusate Sodium 100 mg 11/24/17 23:21 Colace PO BID PRN Constipation Famotidine 20 mg 11/25/17 09:00 11/25/17 09:35 Pepcid PO 20 mg Q12H SRAVAN Administration Famotidine 20 mg 11/24/17 23:56 11/25/17 00:26 Pepcid IVPUSH 11/24/17 23:57 20 mg ONETIME ONE Administration Folic Acid 1 mg 11/24/17 23:24 11/25/17 09:35 Folic Acid PO 11/26/17 09:01 1 mg DAILY SRAVAN Administration Haloperidol Lactate 2 mg 11/24/17 23:23 Haldol IM Q4H PRN Agitation Hydralazine HCl 20 mg 11/24/17 23:19 Apresoline IVPUSH Q4H PRN Hypertension Hydromorphone HCl 0.5 mg 11/24/17 17:28 11/24/17 17:35 Dilaudid IVPUSH 11/24/17 17:29 0.5 mg ONETIME ONE Administration Hydromorphone HCl 0.5 mg 11/24/17 23:21 Dilaudid IVPUSH Q2H PRN Pain (severe 7-10) Dextrose/Lactated Ringer's 1,000 mls @ 999 mls/hr 11/24/17 17:30 11/24/17 18: 32 Dextrose 5%-Lactated Ringers IV 999 mls/hr ASDIRECTED SRAVAN Administration Dextrose/Lactated Ringer's 1,000 mls @ 999 mls/hr 11/24/17 18:30 11/24/17 19: 38 Dextrose 5%-Lactated Ringers IV 999 mls/hr ASDIRECTED SRAVAN Administration Dextrose/Sodium Chloride 1,000 mls @ 999 mls/hr 11/24/17 20:00 Dextrose 5%-Normal Saline IV ASDIRECTED SRAVAN Sodium Chloride 1,000 mls @ 999 mls/hr 11/24/17 20:47 11/24/17 20:56 Normal Saline IV 11/24/17 21:47 999 mls/hr ONETIME ONE Administration Sodium Chloride 1,000 mls @ 999 mls/hr 11/24/17 22:02 11/24/17 22:15 Normal Saline IV 11/24/17 23:02 999 mls/hr ONETIME ONE Administration Sodium Chloride 1,000 mls @ 250 mls/hr 11/24/17 23:30 11/25/17 09:40 Normal Saline IV 250 mls/hr ASDIRECTED SRAVAN Administration Promethazine HCl 12.5 mg/ 50.5 mls @ 100 mls/hr 11/24/17 23:21 Sodium Chloride IV Q6H PRN Nausea/Vomiting Thiamine HCl 200 mg/ Sodium 52 mls @ 100 mls/hr 11/24/17 23:23 11/25/17 00:26 Chloride IV 11/24/17 23:53 100 mls/hr ONETIME ONE Administration Thiamine HCl 200 mg/ Sodium 102 mls @ 196.154 mls/hr 11/25/17 00:30 11/25/17 00:53 Chloride IV 11/25/17 01:01 Not Given ONETIME ONE Magnesium Sulfate 2 gm/ Premix 50 mls @ 25 mls/hr 11/25/17 08:00 11/25/17 09: 42 IV 11/25/17 09:59 25 mls/hr ONETIME ONE Administration Sodium Chloride 1,000 mls @ 350 mls/hr 11/25/17 12:30 11/25/17 13:20 Normal Saline IV 350 mls/hr ASDIRECTED SRAVAN Administration Ibuprofen 400 mg 11/24/17 23:21 Motrin PO Q6H PRN Pain (mild 1-3) Ketorolac Tromethamine 30 mg 11/24/17 17:30 11/24/17 17:36 Toradol IVPUSH 30 mg ONETIME SRAVAN Administration Lorazepam 2 mg 11/24/17 23:19 Ativan IVPUSH Q4H PRN Seizures Lorazepam 0 mg 11/24/17 23:19 Ativan IVPUSH Q4H PRN Withdrawal Symptoms Protocol Magnesium Sulfate 0 dose 11/24/17 23:30 Pharmacy To Dose - Magnesium Replacement .XX ASDIRECTED PRN RX TO WATCH MAG LEVELS Metoclopramide HCl 7.5 mg 11/24/17 17:27 11/24/17 17:34 Reglan IVPUSH 11/24/17 17:28 7.5 mg ONETIME ONE Administration Metoprolol Tartrate 5 mg 11/24/17 23:19 Lopressor IVPUSH Q4H PRN Tachycardia Multivitamins 1 each 11/25/17 09:00 11/25/17 09:35 Thera PO 1 each DAILY SRAVAN Administration Nicotine 21 mg 11/24/17 23:16 11/25/17 00:27 Habitrol TRDERM 11/24/17 23:17 21 mg ONETIME ONE Administration Ondansetron HCl 4 mg 11/24/17 23:21 Zofran IV Q6H PRN Nausea/Vomiting Oxycodone HCl 5 mg 11/24/17 23:21 11/25/17 17:54 Oxycodone PO 5 mg Q4H PRN Administration Pain (moderate 4-6) Potassium Chloride 0 dose 11/24/17 23:30 Pharmacy To Dose - Potassium Replacement .XX ASDIRECTED PRN RX TO WATCH K LEVELS Quetiapine Fumarate 25 mg 11/25/17 21:00 Seroquel PO BEDTIME SRAVAN Quetiapine Fumarate 25 mg 11/24/17 23:56 11/25/17 00:27 Seroquel PO 11/24/17 23:57 25 mg ONETIME ONE Administration Senna/Docusate Sodium 1 tab 11/24/17 23:21 Senna Plus PO BID PRN Constipation Temazepam 15 mg 11/24/17 23:21 Restoril PO BEDTIME PRN Sleep Topiramate 25 mg 11/25/17 21:00 Topamax PO BEDTIME SRAVAN Topiramate 25 mg 11/24/17 23:57 11/25/17 00:27 Topamax PO 11/24/17 23:58 25 mg NOW STA Administration - Re-Assessments/Exams Free Text/Narrative Re-Assessment/Exam: 11/24/17 21:54 Patient received a fourth liter of MS this is in labs reviewed he is urine output only been 200 mL thus far his CPK has not dropped significantly remaining abnormalities are slightly better he needs to come in for continued IV fluids. Case discussed with Dr. Tadeo who will evaluate the patient. Departure - Departure Time of Disposition: 21:56 Disposition: Refer to Observation Clinical Impression: Chronic renal insufficiency, stage III (moderate), Elevated CPK Heat exhaustion Qualifiers: Encounter type: initial encounter Qualified Code(s): T67.5XXA - Heat exhaustion , unspecified, initial encounter - Discharge Information <Andrea Charles Manny - Last Filed: 11/26/17 07:05> ED HPI GENERAL MEDICAL PROBLEM - General Source of Information: Reports: Patient, Family (mother) History Limitations: Reports: No Limitations - History of Present Illness INITIAL COMMENTS - FREE TEXT/NARRATIVE: 37-year-old male [place] descent presents to the ED with diffuse muscle cramps involving his chest is abdominal wall and his extremities. Patient works outside on the [employer] and is exposed ambient temperatures in the low 90s yesterday and I believe 88 today. She has associated nausea and vomiting that started 3-4 hours ago. Mild headache. Generalized weakness. Cramps are the worst and are becoming quite severe. Denies any diarrhea. Onset: Today Onset Date: 11/24/17 Onset Time: 14:00 Duration: Hour(s): Location: Reports: Abdomen (Nausea and vomiting), Generalized Quality: Reports: Other Severity: Severe Improves with: Reports: None Worsens with: Reports: None Context: Reports: Other (Heat exhaustion I exposure to high ambient temperatures in the workplace.). Denies: Activity, Exercise, Lifting, Sick Contact, Trauma Associated Symptoms: Reports: Malaise. Denies: Confusion, Chest Pain, Cough, cough w sputum, Diaphoresis, Fever/Chills, Headaches, Loss of Appetite, Nausea/ Vomiting, Rash, Seizure, Shortness of Breath, Syncope, Weakness Treatments CRYPTOZOOLOGIST: Reports: Other (see below) Past Medical History - Past Health History Medical/Surgical History: Denies Medical/Surgical History Musculoskeletal History: Reports: Other (See Below) Other Musculoskeletal History: left shoulder dislocation; left wrist fracture - Past Surgical History GI Surgical History: Reports: Hernia, Inguinal Musculoskeletal Surgical History: Reports: Other (See Below) Social & Family History - Caffeine Use Caffeine Use: Reports: Coffee, Energy Drinks - Living Situation & Occupation Living situation: Reports: , with Spouse Occupation: Employed ED ROS GENERAL - Review of Systems Review Of Systems: See Below Constitutional: Reports: Malaise, Weakness, Fatigue, Decreased Appetite. Denies : Fever, Chills HEENT: Reports: No Symptoms (Nausea and vomiting) Respiratory: Reports: Shortness of Breath. Denies: Wheezing (Feels like he can' t get his breath but he said having some much cramping.), Pleuritic Chest Pain, Cough, Sputum, Hemoptysis, Other Cardiovascular: Reports: Chest Pain, Blood Pressure Problem, Dyspnea on Exertion (Lamping pain.), Lightheadedness. Denies: Claudication (Blood pressure is markedly elevated upon arrival in the ED.), Edema, Orthopnea, Palpitations Endocrine: Reports: Fatigue, Polydypsia GI/Abdominal: Reports: Abdominal Pain, Nausea (Primarily abdominal cramping pain in the form of cramps in all of his musculature. Associated), Vomiting. Denies: Diarrhea (Nausea and vomiting. Bilious emesis. Denies diarrhea) : Reports: No Symptoms Musculoskeletal: Reports: Other (Normalized muscle cramping all of his extremities and abdominal and back and chest wall.) Skin: Reports: No Symptoms Neurological: Reports: Dizziness, Headache, Difficulty Walking, Weakness. Denies: Confusion, Paresthesia, Pre-Existing Deficit, Seizure, Syncope, Tremors , Trouble Speaking (Due to pain in his muscles) Psychiatric: Reports: No Symptoms Hematologic/Lymphatic: Reports: No Symptoms ED EXAM, GENERAL - Physical Exam Exam: See Below Exam Limited By: Language Barrier (Mild language barrier as he speaks primarily [place]. I think he understands and) General Appearance: Moderate Distress (He is in marked distress with muscle cramping in his chest wall and his abdominal wall.) Eye Exam: Bilateral Eye: Normal Inspection (No jaundice) Throat/Mouth: Other Head: Atraumatic, Normocephalic (Tongue is dry and coated.) Neck: Normal Inspection, Supple, Non-Tender Respiratory/Chest: Lungs Clear, Normal Breath Sounds (Mild tachypnea.), No Accessory Muscle Use, Respiratory Distress Cardiovascular: Normal Peripheral Pulses, Regular Rate, Rhythm, No Edema, No Gallop, No Murmur, No Rub, Tachycardia Peripheral Pulses: 3+: Posterior Tibial (L), Posterior Tibial (R), Dorsalis Pedis (L), Dorsalis Pedis (R) GI/Abdominal: Normal Bowel Sounds (Tachycardia at rest of 10 5/m. He is hypertensive upon initial evaluation at 114 100 which is likely inaccurate since the pulse pressures too close together.), Soft, Non-Tender, No Organomegaly, Hernia Back Exam: Normal Inspection (Left inguinal hernia.), Full Range of Motion. No : CVA Tenderness (L), CVA Tenderness (R) Extremities: Normal Inspection, Normal Range of Motion, Non-Tender, No Pedal Edema Neurological: Alert, Oriented, CN II-XII Intact, Normal Cognition Psychiatric: Normal Affect, Normal Mood Skin Exam: Warm, Dry, Intact, Normal Color, No Rash Course - Orders/Labs/Meds Labs: Laboratory Tests 11/24/17 11/24/17 11/24/17 Range/Units 17:30 17:30 17:30 WBC 18.44 H (4.23-9.07) K/mm3 RBC 5.23 (4.63-6.08) M/mm3 Hgb 16.7 (13.7-17.5) gm/L Hct 49.2 (40.1-51.0) % MCV 94.1 H (79.0-92.2) fl MCH 31.9 (25.7-32.2) pg MCHC 33.9 (32.2-35.5) g/dl RDW Std Deviation 45.9 H (35.1-43.9) fL Plt Count 270 (163-337) K/mm3 MPV 10.3 (9.4-12.3) fl Neutrophils % (Manual) 79 H (40-60) % Band Neutrophils % 0 (0-10) % Lymphocytes % (Manual) 16 L (20-40) % Atypical Lymphs % 0 % Monocytes % (Manual) 5 (2-10) % Eosinophils % (Manual) 0 L (0.8-7.0) % Basophils % (Manual) 0 L (0.2-1.2) Platelet Estimate Adequate Plt Morphology Comment Normal RBC Morph Comment Normal Sodium 136 (136-145) mEq/L Potassium 4.6 (3.5-5.1) mEq/L Chloride 92 L (98-107) mEq/L Carbon Dioxide 25 (21-32) mEq/L Anion Gap 23.6 H (5-15) BUN 28 H (7-18) mg/dL Creatinine 3.4 H (0.7-1.3) mg/dL Est Cr Clr Drug Dosing 25.05 mL/min Estimated GFR (MDRD) 21 (>60) mL/min BUN/Creatinine Ratio 8.2 L (14-18) Glucose 103 (74-106) mg/dL Serum Osmolality 304 H (280-300) mosm/kg Calcium 11.8 H (8.5-10.1) mg/dL Magnesium 2.1 (1.8-2.4) mg/dl Total Bilirubin 1.4 H (0.2-1.0) mg/dL AST 56 H (15-37) U/L ALT 43 (16-63) U/L Alkaline Phosphatase 113 (46-116) U/L Lactate Dehydrogenase (85-227) U/L Creatine Kinase 1531 H (39-308) U/L Myoglobin (17-106) ng/mL Total Protein 11.0 H (6.4-8.2) g/dl Albumin 5.9 H (3.4-5.0) g/dl Globulin 5.1 gm/dL Albumin/Globulin Ratio 1.2 (1-2) Urine Color (Yellow) Urine Appearance (Clear) Urine pH (5.0-8.0) Ur Specific [place] (1.005-1.030) Urine Protein (Negative) Urine Glucose (UA) (Negative) Urine Ketones (Negative) Urine Occult Blood (Negative) Urine Nitrite (Negative) Urine Bilirubin (Negative) Urine Urobilinogen (0.2-1.0) Ur Leukocyte Esterase (Negative) Urine RBC (0-5) /hpf Urine WBC (0-5) /hpf Ur Epithelial Cells (0-5) /hpf Amorphous Sediment (NOT SEEN) /hpf Urine Bacteria (FEW) /hpf Urine Mucus (FEW) /hpf Urine Opiates Screen (NEGATIVE) Ur Buprenorphine Scrn (NEGATIVE) Ur Oxycodone Screen (NEGATIVE) Urine Methadone Screen (NEGATIVE) Ur Propoxyphene Screen (NEGATIVE) Ur Barbiturates Screen (NEGATIVE) Ur Tricyclics Screen (NEGATIVE) Ur Phencyclidine Scrn (NEGATIVE) Ur Amphetamine Screen (NEGATIVE) U Methamphetamines Scrn (NEGATIVE) U Benzodiazepines Scrn (NEGATIVE) U Cocaine Metab Screen (NEGATIVE) U Marijuana (THC) Screen (NEGATIVE) Ethyl Alcohol (0.00) gm% 11/24/17 11/24/17 11/24/17 Range/Units 17:30 17:30 20:11 WBC (4.23-9.07) K/mm3 RBC (4.63-6.08) M/mm3 Hgb (13.7-17.5) gm/L Hct (40.1-51.0) % MCV (79.0-92.2) fl MCH (25.7-32.2) pg MCHC (32.2-35.5) g/dl RDW Std Deviation (35.1-43.9) fL Plt Count (163-337) K/mm3 MPV (9.4-12.3) fl Neutrophils % (Manual) (40-60) % Band Neutrophils % (0-10) % Lymphocytes % (Manual) (20-40) % Atypical Lymphs % % Monocytes % (Manual) (2-10) % Eosinophils % (Manual) (0.8-7.0) % Basophils % (Manual) (0.2-1.2) Platelet Estimate Plt Morphology Comment RBC Morph Comment Sodium (136-145) mEq/L Potassium (3.5-5.1) mEq/L Chloride (98-107) mEq/L Carbon Dioxide (21-32) mEq/L Anion Gap (5-15) BUN (7-18) mg/dL Creatinine (0.7-1.3) mg/dL Est Cr Clr Drug Dosing mL/min Estimated GFR (MDRD) (>60) mL/min BUN/Creatinine Ratio (14-18) Glucose (74-106) mg/dL Serum Osmolality (280-300) mosm/kg Calcium (8.5-10.1) mg/dL Magnesium (1.8-2.4) mg/dl Total Bilirubin (0.2-1.0) mg/dL AST (15-37) U/L ALT (16-63) U/L Alkaline Phosphatase (46-116) U/L Lactate Dehydrogenase 291 H (85-227) U/L Creatine Kinase (39-308) U/L Myoglobin (17-106) ng/mL Total Protein (6.4-8.2) g/dl Albumin (3.4-5.0) g/dl Globulin gm/dL Albumin/Globulin Ratio (1-2) Urine Color Yellow (Yellow) Urine Appearance Clear (Clear) Urine pH 6.5 (5.0-8.0) Ur Specific [place] 1.015 (1.005-1.030) Urine Protein 2+ H (Negative) Urine Glucose (UA) 1+ H (Negative) Urine Ketones Negative (Negative) Urine Occult Blood 3+ H (Negative) Urine Nitrite Negative (Negative) Urine Bilirubin Negative (Negative) Urine Urobilinogen 0.2 (0.2-1.0) Ur Leukocyte Esterase Negative (Negative) Urine RBC 5-10 H (0-5) /hpf Urine WBC 5-10 H (0-5) /hpf Ur Epithelial Cells 5-10 H (0-5) /hpf Amorphous Sediment Few H (NOT SEEN) /hpf Urine Bacteria Few (FEW) /hpf Urine Mucus Not seen (FEW) /hpf Urine Opiates Screen (NEGATIVE) Ur Buprenorphine Scrn (NEGATIVE) Ur Oxycodone Screen (NEGATIVE) Urine Methadone Screen (NEGATIVE) Ur Propoxyphene Screen (NEGATIVE) Ur Barbiturates Screen (NEGATIVE) Ur Tricyclics Screen (NEGATIVE) Ur Phencyclidine Scrn (NEGATIVE) Ur Amphetamine Screen (NEGATIVE) U Methamphetamines Scrn (NEGATIVE) U Benzodiazepines Scrn (NEGATIVE) U Cocaine Metab Screen (NEGATIVE) U Marijuana (THC) Screen (NEGATIVE) Ethyl Alcohol 0.00 (0.00) gm% 11/24/17 11/24/17 11/24/17 Range/Units 20:11 20:59 20:59 WBC (4.23-9.07) K/mm3 RBC (4.63-6.08) M/mm3 Hgb (13.7-17.5) gm/L Hct (40.1-51.0) % MCV (79.0-92.2) fl MCH (25.7-32.2) pg MCHC (32.2-35.5) g/dl RDW Std Deviation (35.1-43.9) fL Plt Count (163-337) K/mm3 MPV (9.4-12.3) fl Neutrophils % (Manual) (40-60) % Band Neutrophils % (0-10) % Lymphocytes % (Manual) (20-40) % Atypical Lymphs % % Monocytes % (Manual) (2-10) % Eosinophils % (Manual) (0.8-7.0) % Basophils % (Manual) (0.2-1.2) Platelet Estimate Plt Morphology Comment RBC Morph Comment Sodium 136 (136-145) mEq/L Potassium 4.0 (3.5-5.1) mEq/L Chloride 99 (98-107) mEq/L Carbon Dioxide 24 (21-32) mEq/L Anion Gap 17.0 H (5-15) BUN 27 H (7-18) mg/dL Creatinine 2.8 H (0.7-1.3) mg/dL Est Cr Clr Drug Dosing 30.42 mL/min Estimated GFR (MDRD) 26 (>60) mL/min BUN/Creatinine Ratio 9.6 L (14-18) Glucose 117 H (74-106) mg/dL Serum Osmolality (280-300) mosm/kg Calcium 9.3 (8.5-10.1) mg/dL Magnesium (1.8-2.4) mg/dl Total Bilirubin 0.7 (0.2-1.0) mg/dL AST 44 H (15-37) U/L ALT 32 (16-63) U/L Alkaline Phosphatase 78 (46-116) U/L Lactate Dehydrogenase (85-227) U/L Creatine Kinase 1517 H (39-308) U/L Myoglobin 1047 H (17-106) ng/mL Total Protein 7.5 (6.4-8.2) g/dl Albumin 3.8 (3.4-5.0) g/dl Globulin 3.7 gm/dL Albumin/Globulin Ratio 1.0 (1-2) Urine Color (Yellow) Urine Appearance (Clear) Urine pH (5.0-8.0) Ur Specific [place] (1.005-1.030) Urine Protein (Negative) Urine Glucose (UA) (Negative) Urine Ketones (Negative) Urine Occult Blood (Negative) Urine Nitrite (Negative) Urine Bilirubin (Negative) Urine Urobilinogen (0.2-1.0) Ur Leukocyte Esterase (Negative) Urine RBC (0-5) /hpf Urine WBC (0-5) /hpf Ur Epithelial Cells (0-5) /hpf Amorphous Sediment (NOT SEEN) /hpf Urine Bacteria (FEW) /hpf Urine Mucus (FEW) /hpf Urine Opiates Screen Negative (NEGATIVE) Ur Buprenorphine Scrn Negative (NEGATIVE) Ur Oxycodone Screen Negative (NEGATIVE) Urine Methadone Screen Negative (NEGATIVE) Ur Propoxyphene Screen Negative (NEGATIVE) Ur Barbiturates Screen Negative (NEGATIVE) Ur Tricyclics Screen Negative (NEGATIVE) Ur Phencyclidine Scrn Negative (NEGATIVE) Ur Amphetamine Screen Negative (NEGATIVE) U Methamphetamines Scrn Negative (NEGATIVE) U Benzodiazepines Scrn Negative (NEGATIVE) U Cocaine Metab Screen Negative (NEGATIVE) U Marijuana (THC) Screen Negative (NEGATIVE) Ethyl Alcohol (0.00) gm% Meds: Medications Discontinued Medications Generic Name Dose Route Start Last Admin Trade Name Freq PRN Reason Stop Dose Admin Acetaminophen 650 mg 11/24/17 23:26 Tylenol PO Q4H PRN Fever Acetaminophen/Butalbital/Caffeine 1 tab 11/25/17 12:51 11/25/17 13:04 Fioricet 325-50-40 Mg PO 1 tab Q6H PRN Administration Headache Albuterol/Ipratropium 3 ml 11/24/17 23:21 Duoneb 3.0-0.5 Mg/3 Ml NEB Q4H PRN Shortness Of Breath/wheezing Bisacodyl 5 mg 11/24/17 23:21 Dulcolax PO DAILY PRN Constipation Chlordiazepoxide HCl 25 mg 11/24/17 23:23 Librium PO Q8H PRN Withdrawal Symptoms Clonidine HCl 0.1 mg 11/24/17 23:23 Catapres PO Q4H PRN Agitation Docusate Sodium 100 mg 11/24/17 23:21 Colace PO BID PRN Constipation Famotidine 20 mg 11/25/17 09:00 11/25/17 09:35 Pepcid PO 20 mg Q12H SRAVAN Administration Famotidine 20 mg 11/24/17 23:56 11/25/17 00:26 Pepcid IVPUSH 11/24/17 23:57 20 mg ONETIME ONE Administration Folic Acid 1 mg 11/24/17 23:24 11/25/17 09:35 Folic Acid PO 11/26/17 09:01 1 mg DAILY SRAVAN Administration Haloperidol Lactate 2 mg 11/24/17 23:23 Haldol IM Q4H PRN Agitation Hydralazine HCl 20 mg 11/24/17 23:19 Apresoline IVPUSH Q4H PRN Hypertension Hydromorphone HCl 0.5 mg 11/24/17 17:28 11/24/17 17:35 Dilaudid IVPUSH 11/24/17 17:29 0.5 mg ONETIME ONE Administration Hydromorphone HCl 0.5 mg 11/24/17 23:21 Dilaudid IVPUSH Q2H PRN Pain (severe 7-10) Dextrose/Lactated Ringer's 1,000 mls @ 999 mls/hr 11/24/17 17:30 11/24/17 18: 32 Dextrose 5%-Lactated Ringers IV 999 mls/hr ASDIRECTED SRAVAN Administration Dextrose/Lactated Ringer's 1,000 mls @ 999 mls/hr 11/24/17 18:30 11/24/17 19: 38 Dextrose 5%-Lactated Ringers IV 999 mls/hr ASDIRECTED SRAVAN Administration Dextrose/Sodium Chloride 1,000 mls @ 999 mls/hr 11/24/17 20:00 Dextrose 5%-Normal Saline IV ASDIRECTED SRAVAN Sodium Chloride 1,000 mls @ 999 mls/hr 11/24/17 20:47 11/24/17 20:56 Normal Saline IV 11/24/17 21:47 999 mls/hr ONETIME ONE Administration Sodium Chloride 1,000 mls @ 999 mls/hr 11/24/17 22:02 11/24/17 22:15 Normal Saline IV 11/24/17 23:02 999 mls/hr ONETIME ONE Administration Sodium Chloride 1,000 mls @ 250 mls/hr 11/24/17 23:30 11/25/17 09:40 Normal Saline IV 250 mls/hr ASDIRECTED SRAVAN Administration Promethazine HCl 12.5 mg/ 50.5 mls @ 100 mls/hr 11/24/17 23:21 Sodium Chloride IV Q6H PRN Nausea/Vomiting Thiamine HCl 200 mg/ Sodium 52 mls @ 100 mls/hr 11/24/17 23:23 11/25/17 00:26 Chloride IV 11/24/17 23:53 100 mls/hr ONETIME ONE Administration Thiamine HCl 200 mg/ Sodium 102 mls @ 196.154 mls/hr 11/25/17 00:30 11/25/17 00:53 Chloride IV 11/25/17 01:01 Not Given ONETIME ONE Magnesium Sulfate 2 gm/ Premix 50 mls @ 25 mls/hr 11/25/17 08:00 11/25/17 09: 42 IV 11/25/17 09:59 25 mls/hr ONETIME ONE Administration Sodium Chloride 1,000 mls @ 350 mls/hr 11/25/17 12:30 11/25/17 13:20 Normal Saline IV 350 mls/hr ASDIRECTED SRAVAN Administration Ibuprofen 400 mg 11/24/17 23:21 Motrin PO Q6H PRN Pain (mild 1-3) Ketorolac Tromethamine 30 mg 11/24/17 17:30 11/24/17 17:36 Toradol IVPUSH 30 mg ONETIME SRAVAN Administration Lorazepam 2 mg 11/24/17 23:19 Ativan IVPUSH Q4H PRN Seizures Lorazepam 0 mg 11/24/17 23:19 Ativan IVPUSH Q4H PRN Withdrawal Symptoms Protocol Magnesium Sulfate 0 dose 11/24/17 23:30 Pharmacy To Dose - Magnesium Replacement .XX ASDIRECTED PRN RX TO WATCH MAG LEVELS Metoclopramide HCl 7.5 mg 11/24/17 17:27 11/24/17 17:34 Reglan IVPUSH 11/24/17 17:28 7.5 mg ONETIME ONE Administration Metoprolol Tartrate 5 mg 11/24/17 23:19 Lopressor IVPUSH Q4H PRN Tachycardia Multivitamins 1 each 11/25/17 09:00 11/25/17 09:35 Thera PO 1 each DAILY SRAVAN Administration Nicotine 21 mg 11/24/17 23:16 11/25/17 00:27 Habitrol TRDERM 11/24/17 23:17 21 mg ONETIME ONE Administration Ondansetron HCl 4 mg 11/24/17 23:21 Zofran IV Q6H PRN Nausea/Vomiting Oxycodone HCl 5 mg 11/24/17 23:21 11/25/17 17:54 Oxycodone PO 5 mg Q4H PRN Administration Pain (moderate 4-6) Potassium Chloride 0 dose 11/24/17 23:30 Pharmacy To Dose - Potassium Replacement .XX ASDIRECTED PRN RX TO WATCH K LEVELS Quetiapine Fumarate 25 mg 11/25/17 21:00 Seroquel PO BEDTIME SRAVAN Quetiapine Fumarate 25 mg 11/24/17 23:56 11/25/17 00:27 Seroquel PO 11/24/17 23:57 25 mg ONETIME ONE Administration Senna/Docusate Sodium 1 tab 11/24/17 23:21 Senna Plus PO BID PRN Constipation Temazepam 15 mg 11/24/17 23:21 Restoril PO BEDTIME PRN Sleep Topiramate 25 mg 11/25/17 21:00 Topamax PO BEDTIME SRAVAN Topiramate 25 mg 11/24/17 23:57 11/25/17 00:27 Topamax PO 11/24/17 23:58 25 mg NOW STA Administration - Radiology Interpretation Free Text/Narrative:: 37-year-old male presents to the ED with heat exhaustion and severe muscle cramping. Cramping is generalized involving his torso and his extremities. Plan IV D5 Ringer's lactate at open. Toradol 30 mg IV with Reglan 7.5 mg IV and Dilaudid 0.5 mg IV for pain relief. Routine labs including CPK and serum magnesium level. - Re-Assessments/Exams Free Text/Narrative Re-Assessment/Exam: 11/24/17 18:07 Patient is reportedly doing much better with far less cramping already. Labs are still pending. 11/24/17 18:15 Labs are starting to come back. Total white count is markedly elevated at 18.44. There is a left shift with 79% neutrophils but no band cells reported. Hemoglobin is elevated at 16.7 with hematocrit of 49.2 suggesting some degree of hemoconcentration. Platelet count is 270,000. Chemistry is pending 11/24/17 18:27 18:25: Chemistry is now back. Sodium is 136 potassium is 4.6. Chloride is 92 with a bicarbonate of 25. Anion gap is 23.6 markedly elevated. BUN is 28 with a creatinine of 3.4. He is already showing significant renal dysfunction. Estimated GFR is 21. BUN/creatinine ratio was 8.2 however. Glucose is 103. Calcium is 11.8. Magnesium is 2.1. Total bilirubin is 1.4. AST is 56. ALT is 43. Alk phosphatase is 113. Creatinine kinase is 1531. Total protein is markedly elevated at 11 with an albumin fraction of 5.9 this overall suggests severe volume depletion. He will need at least 3 L of fluids to correct this problem. 11/24/17 18:42 Patient was advised of the findings of his labs. Of note he is still not made any urine. I will be turning his care over to Dr. Carlson at change of shift. I would suggest that we check his anion gap and creatinine after 3 L of IV fluids. 11/24/17 19:48 I discussed the case with Dr. Carlson Plan will be to give him 3 L of IV fluids and then recheck his CMP. Also his total CPK will be rechecked at 2100 hrs. as well. If there is not a marked improvement in his creatinine level and his anion gap he will have to be admitted to hospital for continued IV fluids. Of note the patient has not yet voided. This is somewhat worrisome for potential acute renal failure . Departure - Departure Condition: Fair - Discharge Information *PRESCRIPTION DRUG MONITORING PROGRAM REVIEWED*: Not Applicable *COPY OF PRESCRIPTION DRUG MONITORING REPORT IN PATIENT CEE: Not Applicable
[2017-11-24] MEDS ORDERED: Dextrose 5%-Lactated Ringers 1,000 ML IV SCH (18:30)
[2017-11-24] MEDS ORDERED: Dextrose 5%-0.9% NaCl 1,000 ML IV SCH (20:00)
[2017-11-24] MEDS ORDERED: Sodium Chloride 0.9% 1,000 ML IV ONE ×2 (20:47→22:02)
[2017-11-24] MEDS ORDERED: Nicotine 21 MG/24 Hr Patch TRDERM ONE (23:16)
[2017-11-24] MEDS ORDERED: Metoprolol Tartrate 5 MG/5 ML SDV IVPUSH PRN (23:19)
[2017-11-24] MEDS ORDERED: hydrALAZINE 20 MG/ML SDV IVPUSH PRN (23:19)
[2017-11-24] MEDS ORDERED: LORazepam 2 MG/ML SDV IVPUSH PRN ×2 (23:19)
[2017-11-24] MEDS ORDERED: HYDROmorphone 0.5 MG/0.5 ML SYRINGE IVPUSH PRN (23:21)
[2017-11-24] MEDS ORDERED: Temazepam 15 MG Cap PO PRN (23:21)
[2017-11-24] MEDS ORDERED: Docusate Sodium 100 MG Cap PO PRN (23:21)
[2017-11-24] MEDS ORDERED: Promethazine 12.5 MG in Sodium Chloride 0.9% 50 ML IV PRN (23:21)
[2017-11-24] MEDS ORDERED: Ibuprofen 400 MG Tab PO PRN (23:21)
[2017-11-24] MEDS ORDERED: Albuterol/Ipratropium 3.0-0.5 MG/3 ML Neb Soln NEB PRN (23:21)
[2017-11-24] MEDS ORDERED: Bisacodyl 5 MG Tab PO PRN (23:21)
[2017-11-24] MEDS ORDERED: Ondansetron 4 MG/2 ML SDV IV PRN (23:21)
[2017-11-24] MEDS ORDERED: Haloperidol Lactate 5 MG/ML SDV IM PRN (23:23)
[2017-11-24] MEDS ORDERED: chlordiazePOXIDE 25 MG Cap PO PRN (23:23)
[2017-11-24] MEDS ORDERED: cloNIDine 0.1 MG Tab PO PRN (23:23)
[2017-11-24] MEDS ORDERED: Acetaminophen 325 MG Tab PO PRN (23:26)
--- NOTE | 2017-11-24 23:28 | PCM.HP ---
H&P History of Present Illness - General Date of Service: 11/24/17 Admit Problem/Dx: Admission Diagnosis/Problem Admission Diagnosis/Problem Dehydration Source of Information: Patient, Family, Provider, RN Notes Reviewed History Limitations: Reports: No Limitations - History of Present Illness Initial Comments - Free Text/Narative: This is a 37 year old Martiniquais [place] ([place]) with no significant past medical hx/o who comes in for evaluation of worsening diffuse muscle cramps- localized to chest, abdomen and all extremities associated with nausea, vomiting , fatigue, malaise and generalized weakness. He denies previous hx/o it in the past. He denies alleviating or aggravating factors. Patient works in the [employer] for long hours and lately been working under extreme weather condition. He reports not drinking adequate fluids but takes a lot of stimulants. He also smokes cigarettes and chews tobacco products. He drinks alcohol at least 12 pack of beers, Tequila and +/- whiskey. He denies illicit drug use. His initial work up in ED shows a CBC remarkable for WBC of 18.44, MCV of 94.1, RDW of 45.9, neutrophils of 79%, and lymphocytes of 16%. His chemistry is remarkable for chloride of 92, anion gap of 23.6, BUN of 28, creatinine of 3.4, serum osmolality of 304, calcium of 11.8, total bilirubin of 1.4, AST of 56, creatinine kinase of 1531, total protein of 11, and albumin of 4.9. His UA is not suggestive of UTI but positive for 2+ protein, 1+ glucose and 3+ occult blood. While in ED he received at least a total 5 L of combined LR/NS fluids with marginal urine output. He is being admitted for medical management of rhabdomyolysis, acute renal failure, severe dehydration and exhaustion. - Related Data Allergies/Adverse Reactions: Allergies Allergy/AdvReac Type Severity Reaction Status Date / Time No Known Allergies Allergy Verified 11/24/17 17:18 Home Medications: Home Meds . [No Known Home Meds] 11/24/17 [History] Past Medical History - Past Health History Medical/Surgical History: Denies Medical/Surgical History Other Gastrointestinal History: inguinal hernia Musculoskeletal History: Reports: Other (See Below) Other Musculoskeletal History: left shoulder dislocation; left wrist fracture, left elbow fx. - Infectious Disease History Infectious Disease History: Reports: Chicken Pox - Past Surgical History GI Surgical History: Reports: Hernia, Inguinal Musculoskeletal Surgical History: Reports: Other (See Below) Social & Family History - Family History Family Medical History: Noncontributory - Tobacco Use Smoking Status *Q: Current Every Day Smoker Years of Tobacco use: 15 Packs/Tins Daily: 1 - Caffeine Use Caffeine Use: Reports: Coffee, Energy Drinks - Recreational Drug Use Recreational Drug Use: No - Living Situation & Occupation Living situation: Reports: , with Spouse Occupation: Employed H&P Review of Systems - Review of Systems: Review Of Systems: See Below General: Reports: Malaise, Weakness, Fatigue. Denies: Fever, Chills HEENT: Reports: No Symptoms Pulmonary: Reports: Shortness of Breath. Denies: Pleuritic Chest Pain Cardiovascular: Reports: Chest Pain, Dyspnea on Exertion, Lightheadedness, Blood Pressure Problem. Denies: Palpitations, Edema, Syncope, Claudication Gastrointestinal: Reports: Abdominal Pain (rigth inguinal region), Flatus, Nausea, Vomiting. Denies: Black Stool, Bloody Stool, Constipation, Decreased Appetite, Difficulty Swallowing, Hematemesis, Hematochezia Genitourinary: Denies: Dysuria, Frequency, Burning, Urgency, Hematuria, Discharge, Retention, Flank Pain Musculoskeletal: Reports: Muscle Pain (chest, abdomen and extremities), Other ( Diffuse muscle cramps). Denies: Back Pain, Muscle Stiffness Skin: Denies: Cyanosis, Jaundice, Mottled, Pallor, Diaphoresis, Bruising, Wound Psychiatric: Reports: No Symptoms Neurological: Reports: Dizziness, Headache, Difficulty Walking. Denies: Confusion, Seizure, Syncope, Weakness, Gait Disturbance Hematologic/Lymphatic: Reports: No Symptoms Immunologic: Reports: No Symptoms Exam - Exam Exam: See Below - Vital Signs Vital Signs: Last Vital Signs Temp 36.8 C 11/24/17 17:19 Pulse 105 H 11/24/17 17:19 Resp BP 114/100 H 11/24/17 17:19 Pulse Ox 97 11/24/17 17:19 Weight: 58.967 kg - Exam General: Alert, Oriented, Cooperative, Mild Distress, Other (looks worn out and very dry) HEENT: Conjunctiva Clear, EACs Clear, EOMI, Hearing Intact, Nares Patent, Normal Nasal Septum, Posterior Pharynx Clear, Pupils Equal, Pupils Reactive, Scleral Icterus (Mild). No: Mucosa Moist & [place] Neck: Supple, Trachea Midline, Full Range of Motion. No: JVD Lungs: Clear to Auscultation, Normal Respiratory Effort Cardiovascular: Regular Rate, Regular Rhythm GI/Abdominal Exam: Normal Bowel Sounds, Soft, Non-Tender, No Organomegaly, No Distention, No Abnormal Bruit, No Mass, Pelvis Stable, Other (surgical scar noted on lower abdomen; right inguinal region: no obvious lesion, mass or any signs of trauma/injury ). No: Distended, Guarding, Rigid, Rebound, Tender (Male) Exam: No Hernia. No: Circumcised, Inguinal Lymphadenopathy, Scrotal Swelling, Scrotum Tenderness (L), Scrotum Tenderness (R), Suprapubic Fullness, Urethral Discharge Rectal (Males) Exam: Deferred Back Exam: Normal Inspection, Full Range of Motion Extremities: Normal Inspection, Normal Range of Motion, Non-Tender, No Pedal Edema, Normal Capillary Refill, Slow Capillary Refill, Increased Warmth Peripheral Pulses: 3+: Posterior Tibial (L), Posterior Tibial (R), Dorsalis Pedis (L), Dorsalis Pedis (R) Skin: Warm, Dry, Intact, Other (Diffuse body tattoos) Neuro Extensive - Mental Status: Oriented x3, Normal Cognition, Memory Intact Neuro Extensive - Motor, Sensory, Reflexes: CN II-XII Intact, Normal Gait Psychiatric: Alert, Normal Affect, Normal Mood. No: Anxious, Agitated, Suicidal Ideation, Hallucinations, Withdrawal Symptoms Physical Exam Comments:: Speaks minimal Z[place]ian but able to understand our conversation - Patient Data Lab Results Last 24 hrs: Laboratory Results - last 24 hr 11/24/17 11/24/17 11/24/17 Range/Units 17:30 17:30 17:30 WBC 18.44 H (4.23-9.07) K/mm3 RBC 5.23 (4.63-6.08) M/mm3 Hgb 16.7 (13.7-17.5) gm/L Hct 49.2 (40.1-51.0) % MCV 94.1 H (79.0-92.2) fl MCH 31.9 (25.7-32.2) pg MCHC 33.9 (32.2-35.5) g/dl RDW Std Deviation 45.9 H (35.1-43.9) fL Plt Count 270 (163-337) K/mm3 MPV 10.3 (9.4-12.3) fl Neutrophils % (Manual) 79 H (40-60) % Band Neutrophils % 0 (0-10) % Lymphocytes % (Manual) 16 L (20-40) % Atypical Lymphs % 0 % Monocytes % (Manual) 5 (2-10) % Eosinophils % (Manual) 0 L (0.8-7.0) % Basophils % (Manual) 0 L (0.2-1.2) Platelet Estimate Adequate Plt Morphology Comment Normal RBC Morph Comment Normal Sodium 136 (136-145) mEq/L Potassium 4.6 (3.5-5.1) mEq/L Chloride 92 L (98-107) mEq/L Carbon Dioxide 25 (21-32) mEq/L Anion Gap 23.6 H (5-15) BUN 28 H (7-18) mg/dL Creatinine 3.4 H (0.7-1.3) mg/dL Est Cr Clr Drug Dosing 25.05 mL/min Estimated GFR (MDRD) 21 (>60) mL/min BUN/Creatinine Ratio 8.2 L (14-18) Glucose 103 (74-106) mg/dL Serum Osmolality 304 H (280-300) mosm/kg Calcium 11.8 H (8.5-10.1) mg/dL Magnesium 2.1 (1.8-2.4) mg/dl Total Bilirubin 1.4 H (0.2-1.0) mg/dL AST 56 H (15-37) U/L ALT 43 (16-63) U/L Alkaline Phosphatase 113 (46-116) U/L Creatine Kinase 1531 H (39-308) U/L Total Protein 11.0 H (6.4-8.2) g/dl Albumin 5.9 H (3.4-5.0) g/dl Globulin 5.1 gm/dL Albumin/Globulin Ratio 1.2 (1-2) Urine Color (Yellow) Urine Appearance (Clear) Urine pH (5.0-8.0) Ur Specific [place] (1.005-1.030) Urine Protein (Negative) Urine Glucose (UA) (Negative) Urine Ketones (Negative) Urine Occult Blood (Negative) Urine Nitrite (Negative) Urine Bilirubin (Negative) Urine Urobilinogen (0.2-1.0) Ur Leukocyte Esterase (Negative) Urine RBC (0-5) /hpf Urine WBC (0-5) /hpf Ur Epithelial Cells (0-5) /hpf Amorphous Sediment (NOT SEEN) /hpf Urine Bacteria (FEW) /hpf Urine Mucus (FEW) /hpf 11/24/17 11/24/17 Range/Units 20:11 20:59 WBC (4.23-9.07) K/mm3 RBC (4.63-6.08) M/mm3 Hgb (13.7-17.5) gm/L Hct (40.1-51.0) % MCV (79.0-92.2) fl MCH (25.7-32.2) pg MCHC (32.2-35.5) g/dl RDW Std Deviation (35.1-43.9) fL Plt Count (163-337) K/mm3 MPV (9.4-12.3) fl Neutrophils % (Manual) (40-60) % Band Neutrophils % (0-10) % Lymphocytes % (Manual) (20-40) % Atypical Lymphs % % Monocytes % (Manual) (2-10) % Eosinophils % (Manual) (0.8-7.0) % Basophils % (Manual) (0.2-1.2) Platelet Estimate Plt Morphology Comment RBC Morph Comment Sodium 136 (136-145) mEq/L Potassium 4.0 (3.5-5.1) mEq/L Chloride 99 (98-107) mEq/L Carbon Dioxide 24 (21-32) mEq/L Anion Gap 17.0 H (5-15) BUN 27 H (7-18) mg/dL Creatinine 2.8 H (0.7-1.3) mg/dL Est Cr Clr Drug Dosing 30.42 mL/min Estimated GFR (MDRD) 26 (>60) mL/min BUN/Creatinine Ratio 9.6 L (14-18) Glucose 117 H (74-106) mg/dL Serum Osmolality (280-300) mosm/kg Calcium 9.3 (8.5-10.1) mg/dL Magnesium (1.8-2.4) mg/dl Total Bilirubin 0.7 (0.2-1.0) mg/dL AST 44 H (15-37) U/L ALT 32 (16-63) U/L Alkaline Phosphatase 78 (46-116) U/L Creatine Kinase 1517 H (39-308) U/L Total Protein 7.5 (6.4-8.2) g/dl Albumin 3.8 (3.4-5.0) g/dl Globulin 3.7 gm/dL Albumin/Globulin Ratio 1.0 (1-2) Urine Color Yellow (Yellow) Urine Appearance Clear (Clear) Urine pH 6.5 (5.0-8.0) Ur Specific [place] 1.015 (1.005-1.030) Urine Protein 2+ H (Negative) Urine Glucose (UA) 1+ H (Negative) Urine Ketones Negative (Negative) Urine Occult Blood 3+ H (Negative) Urine Nitrite Negative (Negative) Urine Bilirubin Negative (Negative) Urine Urobilinogen 0.2 (0.2-1.0) Ur Leukocyte Esterase Negative (Negative) Urine RBC 5-10 H (0-5) /hpf Urine WBC 5-10 H (0-5) /hpf Ur Epithelial Cells 5-10 H (0-5) /hpf Amorphous Sediment Few H (NOT SEEN) /hpf Urine Bacteria Few (FEW) /hpf Urine Mucus Not seen (FEW) /hpf Result Diagrams: 11/25/17 05:55 11/25/17 05:55 Problem List Initiated/Reviewed/Updated: Yes Orders Last 24hrs: Active Orders 24 hr Category Date Time Status Patient Status [ADT] Stat ADT 11/24/17 22:21 Active CIWAA Assessment [RC] Q4H Care 11/24/17 23:21 Ordered Height and Weight [RC] DAILY Care 11/24/17 23:21 Ordered Intake and Output [RC] QSHIFT Care 11/24/17 23:21 Ordered Notify Provider [RC] PRN Care 11/24/17 23:21 Ordered Oxygen Therapy [RC] PRN Care 11/24/17 23:21 Ordered RT Aerosol Therapy [RC] ASDIRECTED Care 11/24/17 23:22 Ordered VTE/DVT Education [RC] PER UNIT ROUTINE Care 11/24/17 23:21 Ordered Vital Signs [RC] Q4H Care 11/24/17 23:21 Ordered Consult to Case Management [CONS] Routine Cons 11/24/17 23:23 Ordered Consult to Integration Aide [CONS] Routine Cons 11/24/17 23:23 Ordered Regular Diet [DIET] Diet 11/24/17 Dinner Ordered BASIC METABOLIC PANEL,BMP [CHEM] AM Lab 11/25/17 05:11 Ordered BASIC METABOLIC PANEL,BMP [CHEM] AM Lab 11/26/17 05:11 Ordered CBC WITH AUTO DIFF [HEME] AM Lab 11/25/17 05:11 Ordered CREATINE KINASE,CK [CHEM] AM Lab 11/25/17 05:11 Ordered CREATINE KINASE,CK [CHEM] AM Lab 11/26/17 05:11 Ordered CREATINE KINASE,CK [CHEM] AM Lab 11/27/17 05:11 Ordered DRUG SCREEN, URINE [URCHEM] Stat Lab 11/24/17 23:23 Ordered MAGNESIUM [CHEM] AM Lab 11/25/17 05:11 Ordered MAGNESIUM [CHEM] AM Lab 11/26/17 05:11 Ordered MAGNESIUM [CHEM] AM Lab 11/27/17 05:11 Ordered MAGNESIUM [CHEM] AM Lab 11/28/17 05:11 Ordered MYOGLOBIN [REF] Stat Lab 11/24/17 21:56 Ordered URINALYSIS W/MICROSCOPIC [UA W/MICROSCOPIC] [URIN] Stat Lab 11/24/17 20:11 Ordered Acetaminophen [Tylenol] Med 11/24/17 23:26 Ordered 650 mg PO Q4H PRN Albuterol/Ipratropium [DuoNeb 3.0-0.5 MG/3 ML] Med 11/24/17 23:21 Ordered 3 ml NEB Q4H PRN Bisacodyl [Dulcolax] Med 11/24/17 23:21 Ordered 5 mg PO DAILY PRN Dextrose 5%-0.9% NaCl [Dextrose 5%-Normal Saline] 1,000 Med 11/24/17 20:00 Active ml IV ASDIRECTED Dextrose 5%-Lactated Ringers 1,000 ml Med 11/24/17 17:30 Active IV ASDIRECTED Dextrose 5%-Lactated Ringers 1,000 ml Med 11/24/17 18:30 Active IV ASDIRECTED Docusate Sodium [Colace] Med 11/24/17 23:21 Ordered 100 mg PO BID PRN Docusate Sodium/Sennosides [Senna Plus] Med 11/24/17 23:21 Ordered 1 tab PO BID PRN Famotidine [Pepcid] Med 11/25/17 09:00 Ordered 20 mg PO Q12H Folic Acid Med 11/24/17 23:24 Ordered 1 mg PO DAILY HYDROmorphone [Dilaudid] Med 11/24/17 23:21 Ordered 0.5 mg IVPUSH Q2H PRN Haloperidol Lactate [Haldol] Med 11/24/17 23:23 Ordered 2 mg IM Q4H PRN Ibuprofen [Motrin] Med 11/24/17 23:21 Ordered 400 mg PO Q6H PRN Ketorolac [Toradol] Med 11/24/17 17:30 Stop Req 30 mg IVPUSH ONETIME LORazepam [Ativan] Med 11/24/17 23:19 Ordered 2 mg IVPUSH Q4H PRN LORazepam [Ativan] Med 11/24/17 23:19 Ordered See Protocol IVPUSH Q4H PRN Magnesium Rep Pharmacy to Dose [Pharmacy to Dose - Med 11/24/17 23:30 Ordered Magnesium Replacement] 1 dose .XX ASDIRECTED Metoprolol Tartrate [Lopressor] Med 11/24/17 23:19 Ordered 5 mg IVPUSH Q4H PRN Multivitamins,Therapeutic [Thera] Med 11/25/17 09:00 Ordered 1 each PO DAILY Ondansetron [Zofran] Med 11/24/17 23:21 Ordered 4 mg IV Q6H PRN Potassium Rep Pharmacy to Dose [Pharmacy to Dose - Med 11/24/17 23:30 Ordered Potassium Replacement] 1 dose .XX ASDIRECTED Promethazine [Phenergan] 12.5 mg Med 11/24/17 23:21 Ordered Sodium Chloride 0.9% [Normal Saline] 50 ml IV Q6H Sodium Chloride 0.9% [Normal Saline] 1,000 ml Med 11/24/17 23:30 Ordered IV ASDIRECTED Temazepam [Restoril] Med 11/24/17 23:21 Ordered 15 mg PO BEDTIME PRN Thiamine [Vitamin B-1] 200 mg Med 11/24/17 23:23 Ordered Sodium Chloride 0.9% [Normal Saline] 50 ml IV ONETIME chlordiazePOXIDE [Librium] Med 11/24/17 23:23 Ordered 25 mg PO Q8H PRN cloNIDine [Catapres] Med 11/24/17 23:23 Ordered 0.1 mg PO Q4H PRN hydrALAZINE [Apresoline] Med 11/24/17 23:19 Ordered 20 mg IVPUSH Q4H PRN oxyCODONE Med 11/24/17 23:21 Ordered 5 mg PO Q4H PRN Seizure Precautions [OM.PC] Routine Oth 11/24/17 23:23 Ordered Resuscitation Status Routine Resus Stat 11/24/17 23:21 Ordered Medication Orders Hydralazine HCl (Apresoline) 20 mg IVPUSH Q4H PRN PRN Reason: Hypertension Dextrose/Lactated Ringer's (Dextrose 5%-Lactated Ringers) 1,000 mls @ 999 mls/ hr IV ASDIRECTED [facility] Last Admin: 11/24/17 18:32 Dose: 999 mls/hr Infusion: 11/24/17 18:32 Dose: 999 mls/hr Admin: 11/24/17 17:34 Dose: 999 mls/hr Dextrose/Lactated Ringer's (Dextrose 5%-Lactated Ringers) 1,000 mls @ 999 mls/ hr IV ASDIRECTED [facility] Last Admin: 11/24/17 19:38 Dose: 999 mls/hr Dextrose/Sodium Chloride (Dextrose 5%-Normal Saline) 1,000 mls @ 999 mls/hr IV ASDIRECTED SRAVAN Sodium Chloride (Normal Saline) 1,000 mls @ 250 mls/hr IV ASDIRECTED [facility] Ketorolac Tromethamine (Toradol) 30 mg IVPUSH ONETIME [facility] Last Admin: 11/24/17 17:36 Dose: 30 mg Lorazepam (Ativan) 2 mg IVPUSH Q4H PRN PRN Reason: Seizures Lorazepam (Ativan) 0 mg IVPUSH Q4H PRN; Protocol PRN Reason: Withdrawal Symptoms Magnesium Sulfate (Pharmacy To Dose - Magnesium Replacement) 1 dose .XX ASDIRECTED [facility] Metoprolol Tartrate (Lopressor) 5 mg IVPUSH Q4H PRN PRN Reason: Tachycardia Potassium Chloride (Pharmacy To Dose - Potassium Replacement) 1 dose .XX ASDIRECTED [facility] Assessment/Plan Comment:: Assessment: Acute: Oliguric Renal Failure - Likely due to ATN from Severe Volume Depletion and Heat Exhaustion - Risk factors: Poor Fluid Intake, Heavy Stimulant Use and High-Risk Work Environment - BUN 28, CR 3.4 and GFR 21--> repeat labs earlier today Cr of 2.8 and GFR of 26 - He received a one time dose of Ketorolac in ED - Received a total of 5 liters combined LR/NS; so < 500 Ml of urine output - Continue aggressive hydration - Avoid Nephrotoxic agents to include NSAIDs - Strict Is/Os - Renal U/S in AM r/o Renal Abnormality and Post Obstructive Uropathy Severe Dehydration and Heat Exhaustion - Aggressive IV Hydration and Conservative Management Mild Rhabdomyolysis - Risk Factors: Strenuous/Manual Labor, Heavy Stimulant Use and Working Under Extreme Weather Condition - He works long hours - CK is 1531--> 1517 - UA shows 3+ occult blood - Renal function is significantly reduced for a young man in his age (Bun 28 and Cr of 3.4, GFR 21) - Myoglobin level for confirmatory test - Already received 5 liters of combined LR and NS with marginal urine output - Continue aggressive IV hydration Left Inguinal Pain - Hx/o Inguinal Hernia Repair in [place] - Suspect Pulled Inguinal Muscle; Will avoid NSAIDs for now - He is not use if he has mesh in there - No bulging mass; no incarceration or strangulation - Surgical scar intact on examination - Abdominal CT scan in AM r/o other causes Leukocytosis Without Bands - WBC 18.44 - Likely 2/2 Leuko-concentration from Severe Volume Depletion - Expect to improve in AM Nicotine Use Disorder - Smokes and chews tobacco - Nicotine Patch Daily PRN - Counseled on Smoking Cessation Chronic ETOH Use - Use Combined "Cerveza (12 packs), Tequila and Whiskey" - CIWA Protocol - Librium/Topamax/Ativan/Clonidine and Seroquel - PRN Ativan for abortive seizure Plan: Admit to the floor Routine AM Labs Conservative Management: pain medication, aggressive intravenous hydration, and prn meds Avoid NSAIDs or Nephrotoxic Agents CIWA Protocol UDS and LDH Folic Acid, Thiamine and MVI GI PPx: H2B DVT PPx: He is ambulatory and low risk; avoid SCDs due to muscle breakdown Additional orders as above Code status: 1
[2017-11-24] MEDS ORDERED: Famotidine 20 MG/2 ML SDV IVPUSH ONE (23:56)
[2017-11-24] MEDS ORDERED: QUEtiapine 25 MG Tab PO ONE (23:56)
[2017-11-24] MEDS ORDERED: Topiramate 25 MG Tab PO STA (23:57)
[2017-11-25] MEDS: Sodium Chloride 0.9% 1,000 ML IV SCH ×3 (00:26→09:40)
[2017-11-25] MEDS: Folic Acid 1 MG Tab PO SCH ×2 (00:27→09:35)
[2017-11-25] MEDS ORDERED: Thiamine 200 MG in Sodium Chloride 0.9% 100 ML IV ONE (00:30)
[2017-11-25] MEDS ORDERED: Magnesium Sulfate/Water 2 GM in Premix Bag 1 BAG IV ONE (08:00)
[2017-11-25] MEDS ORDERED: Famotidine 20 MG Tab PO SCH (09:00)
[2017-11-25] MEDS ORDERED: Multivitamins,Therapeutic Tab PO SCH (09:00)
--- NOTE | 2017-11-25 10:03 | CT ---
CT abdomen and pelvis Technique: Multiple axial sections were obtained from above the dome of the diaphragm inferiorly through the pubic symphysis. Intravenous and oral contrast not utilized. Comparison: No prior abdominal imaging. Findings: Posterior atelectasis is seen within both lung bases, more prominent on the right side. Noncontrast appearance of the liver and spleen appears within normal limits. Adrenal glands show no nodule. No discrete abnormality is appreciated within the pancreas. Kidneys show no abnormal calcifications. No ureteral dilatation or ureteral stone is seen. Aorta shows no aneurysmal dilatation. No retroperitoneal adenopathy or mesenteric abnormalities are seen. No pelvic mass or adenopathy is seen. No abdominal wall or inguinal hernia is seen. No abnormal soft tissue findings are seen in the region of the inguinal area. Impression: 1. Incidental atelectasis. 2. Nothing acute is appreciated on noncontrast CT study of the abdomen and pelvis. Diagnostic code #2
--- NOTE | 2017-11-25 10:05 | US ---
Renal ultrasound: Multiple real-time images of the kidneys were obtained. Kidneys show no hydronephrosis or mass. Resistivity indices are borderline at 0.7. Right kidney length is 10.5 cm and left kidney length is 9.4 cm. Prevoid volume within the bladder is 448 mL and post void volume is 54 mL. Bilateral ureteral jets are seen within the bladder. Impression: 1. Resistivity indices are borderline at 0.7 possibly representing mild medical renal disease. 2. Renal ultrasound is otherwise unremarkable other than small post void residual within the bladder. Diagnostic code #3
[2017-11-25] MEDS ORDERED: Sodium Chloride 0.9% 1,000 ML IV SCH (12:30)
[2017-11-25] MEDS ORDERED: Acetaminophen/Butalbital/Caffeine 325-50-40 MG Tab PO PRN (12:51)
[2017-11-25] MEDS: oxyCODONE 5 MG Tab PO PRN ×2 (13:28→17:54)
[2017-11-25 13:33] VITALS: BP 108/61
--- NOTE | 2017-11-25 17:38 | PCM.DCSUM1 ---
Discharge Summary - Hospital Course Diagnosis: Stroke: No Modified Stephen Scale: No Symptoms at All Modified Stephen Scale Score: 0 - Discharge Data Discharge Date: 11/25/17 Discharge Disposition: Home, Self-Care 01 Condition: Good - Discharge Diagnosis/Problem(s) (1) Acute renal failure (ARF) SNOMED Code(s): 28945853 ICD Code: N17.9 - ACUTE KIDNEY FAILURE, UNSPECIFIED Status: Acute Current Visit: Yes (2) Rhabdomyolysis SNOMED Code(s): 112468787 ICD Code: M62.82 - RHABDOMYOLYSIS Status: Acute Current Visit: Yes (3) Heat exhaustion SNOMED Code(s): 04694975 ICD Code: T67.5XXA - HEAT EXHAUSTION, UNSPECIFIED, INITIAL ENCOUNTER Status : Acute Current Visit: Yes (4) Severe dehydration SNOMED Code(s): 878546863 ICD Code: E86.0 - DEHYDRATION Status: Acute Current Visit: Yes (5) Left inguinal pain SNOMED Code(s): 235504863 ICD Code: R10.32 - LEFT LOWER QUADRANT PAIN Status: Acute Current Visit: Yes (6) Leukocytosis, unspecified SNOMED Code(s): 357531565, 854566368 ICD Code: D72.829 - ELEVATED WHITE BLOOD CELL COUNT, UNSPECIFIED Status: Acute Current Visit: Yes Qualifiers: Leukocytosis type: unspecified Qualified Code(s): D72.829 - Elevated white blood cell count, unspecified (7) Nicotine dependence SNOMED Code(s): 81644998 ICD Code: F17.200 - NICOTINE DEPENDENCE, UNSPECIFIED, UNCOMPLICATED Status : Acute Current Visit: Yes Qualifiers: Nicotine product type: cigarettes Substance use status: uncomplicated Qualified Code(s): F17.210 - Nicotine dependence, cigarettes, uncomplicated (8) Chronic alcohol use SNOMED Code(s): 437847 ICD Code: Z72.89 - OTHER PROBLEMS RELATED TO LIFESTYLE Status: Chronic Current Visit: Yes - Patient Summary/Data Consults: Consultations 11/24/17 23:23 Consult to Case Management [CONS] Routine Consult to Furniture Restorer [CONS] Routine - Patient Instructions Diet: Usual Diet as Tolerated, Drink 8-10+ Glasses/Day Activity: As Tolerated Driving: May Drive Today Showering/Bathing: May Shower Notify Provider of: Fever, Increased Pain, Swelling and Redness, Nausea and/or Vomiting Other/Special Instructions: - Please take all new medications. - Resume routine activities as tolerated. - Recommend you take care of yourself and know signs of exhaustion and overwork: examples are thirst, tiredness, sleepiness, soreness or diffuse generalized aches and pains etc. - Cut down on stimulants (caffeine or caffeinated products) intake. - Follow up with PCP in 1 -2 week as needed. - Come back or seek immediate care at the nearest medical facility should your symptoms persist or get worse - Discharge Plan *PRESCRIPTION DRUG MONITORING PROGRAM REVIEWED*: Yes *COPY OF PRESCRIPTION DRUG MONITORING REPORT IN PATIENT CEE: Yes Prescriptions/Med Rec: Acetaminophen/HYDROcodone [[place] 325-5 MG] 1 tab PO Q6H #10 tablet Naproxen 375 mg PO BID #6 tablet. Home Medications: Home Meds Acetaminophen/HYDROcodone [[place] 325-5 MG] 1 tab PO Q6H #10 tablet 11/25/17 [Rx] Naproxen 375 mg PO BID #6 tablet. 11/25/17 [Rx] Patient Handouts: Steps to Quit Smoking, [id number], Acute Kidney Injury, Adult, Rhabdomyolysis, What You Need to Know About Alcohol Abuse and Dependence , Adult, Leukocytosis, Dehydration, Adult, [id number], Muscle Strain, Heat Illness-SportsMed, Pain Without a Known Cause Referrals: Jorge L Richards PA-C [Physician Sole Tacker] - 12/02/17 11:00 am (Please register at 10:30am. If this appointment time does not work, please call clinic and reschedule.) - General Info Date of Service: 11/25/17 Admission Dx/Problem (Free Text: Admission Diagnosis/Problem Admission Diagnosis/Problem Dehydration Subjective Update: Follow Up Functional Status: Reports: Pain Controlled, Tolerating Diet, Ambulating, Urinating - Patient Data Vitals - Most Recent: Last Vital Signs Temp 36.5 C 11/25/17 12:17 Pulse 64 11/25/17 12:17 Resp 16 11/25/17 12:17 BP 108/61 11/25/17 12:17 Pulse Ox 98 11/25/17 12:17 Weight - Most Recent: 58.967 kg I&O - Last 24 hours: Intake & Output 11/25/17 11/25/17 11/25/17 06:59 14:59 22:59 Intake Total 2868 576 0730 Output Total 450 700 Balance 3567 147 4259 Lab Results - Last 24 hrs: Laboratory Results - last 24 hr 11/24/17 11/24/17 11/24/17 Range/Units 17:30 17:30 17:30 WBC 18.44 H (4.23-9.07) K/mm3 RBC 5.23 (4.63-6.08) M/mm3 Hgb 16.7 (13.7-17.5) gm/L Hct 49.2 (40.1-51.0) % MCV 94.1 H (79.0-92.2) fl MCH 31.9 (25.7-32.2) pg MCHC 33.9 (32.2-35.5) g/dl RDW Std Deviation 45.9 H (35.1-43.9) fL Plt Count 270 (163-337) K/mm3 MPV 10.3 (9.4-12.3) fl Neut % (Auto) (34.0-67.9) % Lymph % (Auto) (21.8-53.1) % [place] % (Auto) (5.3-12.2) % Eos % (Auto) (0.8-7.0) Baso % (Auto) (0.1-1.2) % Neut # (Auto) (1.78-5.38) K/mm3 Lymph # (Auto) (1.32-3.57) K/mm3 [place] # (Auto) (0.30-0.82) K/mm3 Eos # (Auto) (0.04-0.54) K/mm3 Baso # (Auto) (0.01-0.08) K/mm3 Neutrophils % (Manual) 79 H (40-60) % Band Neutrophils % 0 (0-10) % Lymphocytes % (Manual) 16 L (20-40) % Atypical Lymphs % 0 % Monocytes % (Manual) 5 (2-10) % Eosinophils % (Manual) 0 L (0.8-7.0) % Basophils % (Manual) 0 L (0.2-1.2) Platelet Estimate Adequate Plt Morphology Comment Normal RBC Morph Comment Normal Sodium 136 (136-145) mEq/L Potassium 4.6 (3.5-5.1) mEq/L Chloride 92 L (98-107) mEq/L Carbon Dioxide 25 (21-32) mEq/L Anion Gap 23.6 H (5-15) BUN 28 H (7-18) mg/dL Creatinine 3.4 H (0.7-1.3) mg/dL Est Cr Clr Drug Dosing 25.05 mL/min Estimated GFR (MDRD) 21 (>60) mL/min BUN/Creatinine Ratio 8.2 L (14-18) Glucose 103 (74-106) mg/dL Serum Osmolality 304 H (280-300) mosm/kg Calcium 11.8 H (8.5-10.1) mg/dL Magnesium 2.1 (1.8-2.4) mg/dl Total Bilirubin 1.4 H (0.2-1.0) mg/dL AST 56 H (15-37) U/L ALT 43 (16-63) U/L Alkaline Phosphatase 113 (46-116) U/L Lactate Dehydrogenase (85-227) U/L Creatine Kinase 1531 H (39-308) U/L Total Protein 11.0 H (6.4-8.2) g/dl Albumin 5.9 H (3.4-5.0) g/dl Globulin 5.1 gm/dL Albumin/Globulin Ratio 1.2 (1-2) Urine Color (Yellow) Urine Appearance (Clear) Urine pH (5.0-8.0) Ur Specific [place] (1.005-1.030) Urine Protein (Negative) Urine Glucose (UA) (Negative) Urine Ketones (Negative) Urine Occult Blood (Negative) Urine Nitrite (Negative) Urine Bilirubin (Negative) Urine Urobilinogen (0.2-1.0) Ur Leukocyte Esterase (Negative) Urine RBC (0-5) /hpf Urine WBC (0-5) /hpf Ur Epithelial Cells (0-5) /hpf Amorphous Sediment (NOT SEEN) /hpf Urine Bacteria (FEW) /hpf Urine Mucus (FEW) /hpf Urine Opiates Screen (NEGATIVE) Ur Buprenorphine Scrn (NEGATIVE) Ur Oxycodone Screen (NEGATIVE) Urine Methadone Screen (NEGATIVE) Ur Propoxyphene Screen (NEGATIVE) Ur Barbiturates Screen (NEGATIVE) Ur Tricyclics Screen (NEGATIVE) Ur Phencyclidine Scrn (NEGATIVE) Ur Amphetamine Screen (NEGATIVE) U Methamphetamines Scrn (NEGATIVE) U Benzodiazepines Scrn (NEGATIVE) U Cocaine Metab Screen (NEGATIVE) U Marijuana (THC) Screen (NEGATIVE) Ethyl Alcohol (0.00) gm% 11/24/17 11/24/17 11/24/17 Range/Units 17:30 17:30 20:11 WBC (4.23-9.07) K/mm3 RBC (4.63-6.08) M/mm3 Hgb (13.7-17.5) gm/L Hct (40.1-51.0) % MCV (79.0-92.2) fl MCH (25.7-32.2) pg MCHC (32.2-35.5) g/dl RDW Std Deviation (35.1-43.9) fL Plt Count (163-337) K/mm3 MPV (9.4-12.3) fl Neut % (Auto) (34.0-67.9) % Lymph % (Auto) (21.8-53.1) % [place] % (Auto) (5.3-12.2) % Eos % (Auto) (0.8-7.0) Baso % (Auto) (0.1-1.2) % Neut # (Auto) (1.78-5.38) K/mm3 Lymph # (Auto) (1.32-3.57) K/mm3 [place] # (Auto) (0.30-0.82) K/mm3 Eos # (Auto) (0.04-0.54) K/mm3 Baso # (Auto) (0.01-0.08) K/mm3 Neutrophils % (Manual) (40-60) % Band Neutrophils % (0-10) % Lymphocytes % (Manual) (20-40) % Atypical Lymphs % % Monocytes % (Manual) (2-10) % Eosinophils % (Manual) (0.8-7.0) % Basophils % (Manual) (0.2-1.2) Platelet Estimate Plt Morphology Comment RBC Morph Comment Sodium (136-145) mEq/L Potassium (3.5-5.1) mEq/L Chloride (98-107) mEq/L Carbon Dioxide (21-32) mEq/L Anion Gap (5-15) BUN (7-18) mg/dL Creatinine (0.7-1.3) mg/dL Est Cr Clr Drug Dosing mL/min Estimated GFR (MDRD) (>60) mL/min BUN/Creatinine Ratio (14-18) Glucose (74-106) mg/dL Serum Osmolality (280-300) mosm/kg Calcium (8.5-10.1) mg/dL Magnesium (1.8-2.4) mg/dl Total Bilirubin (0.2-1.0) mg/dL AST (15-37) U/L ALT (16-63) U/L Alkaline Phosphatase (46-116) U/L Lactate Dehydrogenase 291 H (85-227) U/L Creatine Kinase (39-308) U/L Total Protein (6.4-8.2) g/dl Albumin (3.4-5.0) g/dl Globulin gm/dL Albumin/Globulin Ratio (1-2) Urine Color Yellow (Yellow) Urine Appearance Clear (Clear) Urine pH 6.5 (5.0-8.0) Ur Specific [place] 1.015 (1.005-1.030) Urine Protein 2+ H (Negative) Urine Glucose (UA) 1+ H (Negative) Urine Ketones Negative (Negative) Urine Occult Blood 3+ H (Negative) Urine Nitrite Negative (Negative) Urine Bilirubin Negative (Negative) Urine Urobilinogen 0.2 (0.2-1.0) Ur Leukocyte Esterase Negative (Negative) Urine RBC 5-10 H (0-5) /hpf Urine WBC 5-10 H (0-5) /hpf Ur Epithelial Cells 5-10 H (0-5) /hpf Amorphous Sediment Few H (NOT SEEN) /hpf Urine Bacteria Few (FEW) /hpf Urine Mucus Not seen (FEW) /hpf Urine Opiates Screen (NEGATIVE) Ur Buprenorphine Scrn (NEGATIVE) Ur Oxycodone Screen (NEGATIVE) Urine Methadone Screen (NEGATIVE) Ur Propoxyphene Screen (NEGATIVE) Ur Barbiturates Screen (NEGATIVE) Ur Tricyclics Screen (NEGATIVE) Ur Phencyclidine Scrn (NEGATIVE) Ur Amphetamine Screen (NEGATIVE) U Methamphetamines Scrn (NEGATIVE) U Benzodiazepines Scrn (NEGATIVE) U Cocaine Metab Screen (NEGATIVE) U Marijuana (THC) Screen (NEGATIVE) Ethyl Alcohol 0.00 (0.00) gm% 11/24/17 11/24/17 11/25/17 Range/Units 20:11 20:59 05:55 WBC 8.85 (4.23-9.07) K/mm3 RBC 3.62 L (4.63-6.08) M/mm3 Hgb 11.6 L (13.7-17.5) gm/L Hct 35.2 L (40.1-51.0) % MCV 97.2 H (79.0-92.2) fl MCH 32.0 (25.7-32.2) pg MCHC 33.0 (32.2-35.5) g/dl RDW Std Deviation 47.3 H (35.1-43.9) fL Plt Count 186 (163-337) K/mm3 MPV 10.1 (9.4-12.3) fl Neut % (Auto) 58.8 (34.0-67.9) % Lymph % (Auto) 30.7 (21.8-53.1) % [place] % (Auto) 9.4 (5.3-12.2) % Eos % (Auto) 0.7 L (0.8-7.0) Baso % (Auto) 0.2 (0.1-1.2) % Neut # (Auto) 5.20 (1.78-5.38) K/mm3 Lymph # (Auto) 2.72 (1.32-3.57) K/mm3 [place] # (Auto) 0.83 H (0.30-0.82) K/mm3 Eos # (Auto) 0.06 (0.04-0.54) K/mm3 Baso # (Auto) 0.02 (0.01-0.08) K/mm3 Neutrophils % (Manual) (40-60) % Band Neutrophils % (0-10) % Lymphocytes % (Manual) (20-40) % Atypical Lymphs % % Monocytes % (Manual) (2-10) % Eosinophils % (Manual) (0.8-7.0) % Basophils % (Manual) (0.2-1.2) Platelet Estimate Plt Morphology Comment RBC Morph Comment Sodium 136 (136-145) mEq/L Potassium 4.0 (3.5-5.1) mEq/L Chloride 99 (98-107) mEq/L Carbon Dioxide 24 (21-32) mEq/L Anion Gap 17.0 H (5-15) BUN 27 H (7-18) mg/dL Creatinine 2.8 H (0.7-1.3) mg/dL Est Cr Clr Drug Dosing 30.42 mL/min Estimated GFR (MDRD) 26 (>60) mL/min BUN/Creatinine Ratio 9.6 L (14-18) Glucose 117 H (74-106) mg/dL Serum Osmolality (280-300) mosm/kg Calcium 9.3 (8.5-10.1) mg/dL Magnesium (1.8-2.4) mg/dl Total Bilirubin 0.7 (0.2-1.0) mg/dL AST 44 H (15-37) U/L ALT 32 (16-63) U/L Alkaline Phosphatase 78 (46-116) U/L Lactate Dehydrogenase (85-227) U/L Creatine Kinase 1517 H (39-308) U/L Total Protein 7.5 (6.4-8.2) g/dl Albumin 3.8 (3.4-5.0) g/dl Globulin 3.7 gm/dL Albumin/Globulin Ratio 1.0 (1-2) Urine Color (Yellow) Urine Appearance (Clear) Urine pH (5.0-8.0) Ur Specific [place] (1.005-1.030) Urine Protein (Negative) Urine Glucose (UA) (Negative) Urine Ketones (Negative) Urine Occult Blood (Negative) Urine Nitrite (Negative) Urine Bilirubin (Negative) Urine Urobilinogen (0.2-1.0) Ur Leukocyte Esterase (Negative) Urine RBC (0-5) /hpf Urine WBC (0-5) /hpf Ur Epithelial Cells (0-5) /hpf Amorphous Sediment (NOT SEEN) /hpf Urine Bacteria (FEW) /hpf Urine Mucus (FEW) /hpf Urine Opiates Screen Negative (NEGATIVE) Ur Buprenorphine Scrn Negative (NEGATIVE) Ur Oxycodone Screen Negative (NEGATIVE) Urine Methadone Screen Negative (NEGATIVE) Ur Propoxyphene Screen Negative (NEGATIVE) Ur Barbiturates Screen Negative (NEGATIVE) Ur Tricyclics Screen Negative (NEGATIVE) Ur Phencyclidine Scrn Negative (NEGATIVE) Ur Amphetamine Screen Negative (NEGATIVE) U Methamphetamines Scrn Negative (NEGATIVE) U Benzodiazepines Scrn Negative (NEGATIVE) U Cocaine Metab Screen Negative (NEGATIVE) U Marijuana (THC) Screen Negative (NEGATIVE) Ethyl Alcohol (0.00) gm% 11/25/17 11/25/17 Range/Units 05:55 15:35 WBC (4.23-9.07) K/mm3 RBC (4.63-6.08) M/mm3 Hgb (13.7-17.5) gm/L Hct (40.1-51.0) % MCV (79.0-92.2) fl MCH (25.7-32.2) pg MCHC (32.2-35.5) g/dl RDW Std Deviation (35.1-43.9) fL Plt Count (163-337) K/mm3 MPV (9.4-12.3) fl Neut % (Auto) (34.0-67.9) % Lymph % (Auto) (21.8-53.1) % [place] % (Auto) (5.3-12.2) % Eos % (Auto) (0.8-7.0) Baso % (Auto) (0.1-1.2) % Neut # (Auto) (1.78-5.38) K/mm3 Lymph # (Auto) (1.32-3.57) K/mm3 [place] # (Auto) (0.30-0.82) K/mm3 Eos # (Auto) (0.04-0.54) K/mm3 Baso # (Auto) (0.01-0.08) K/mm3 Neutrophils % (Manual) (40-60) % Band Neutrophils % (0-10) % Lymphocytes % (Manual) (20-40) % Atypical Lymphs % % Monocytes % (Manual) (2-10) % Eosinophils % (Manual) (0.8-7.0) % Basophils % (Manual) (0.2-1.2) Platelet Estimate Plt Morphology Comment RBC Morph Comment Sodium 140 141 (136-145) mEq/L Potassium 3.9 4.5 (3.5-5.1) mEq/L Chloride 110 H 110 H (98-107) mEq/L Carbon Dioxide 22 23 (21-32) mEq/L Anion Gap 11.9 12.5 (5-15) BUN 23 H 20 H (7-18) mg/dL Creatinine 1.7 H 1.4 H (0.7-1.3) mg/dL Est Cr Clr Drug Dosing 46.98 60.84 mL/min Estimated GFR (MDRD) 46 57 (>60) mL/min BUN/Creatinine Ratio 13.5 L 14.3 (14-18) Glucose 102 97 (74-106) mg/dL Serum Osmolality (280-300) mosm/kg Calcium 7.6 L 7.9 L (8.5-10.1) mg/dL Magnesium 1.7 L (1.8-2.4) mg/dl Total Bilirubin (0.2-1.0) mg/dL AST (15-37) U/L ALT (16-63) U/L Alkaline Phosphatase (46-116) U/L Lactate Dehydrogenase (85-227) U/L Creatine Kinase 1465 H 1328 H (39-308) U/L Total Protein (6.4-8.2) g/dl Albumin (3.4-5.0) g/dl Globulin gm/dL Albumin/Globulin Ratio (1-2) Urine Color (Yellow) Urine Appearance (Clear) Urine pH (5.0-8.0) Ur Specific [place] (1.005-1.030) Urine Protein (Negative) Urine Glucose (UA) (Negative) Urine Ketones (Negative) Urine Occult Blood (Negative) Urine Nitrite (Negative) Urine Bilirubin (Negative) Urine Urobilinogen (0.2-1.0) Ur Leukocyte Esterase (Negative) Urine RBC (0-5) /hpf Urine WBC (0-5) /hpf Ur Epithelial Cells (0-5) /hpf Amorphous Sediment (NOT SEEN) /hpf Urine Bacteria (FEW) /hpf Urine Mucus (FEW) /hpf Urine Opiates Screen (NEGATIVE) Ur Buprenorphine Scrn (NEGATIVE) Ur Oxycodone Screen (NEGATIVE) Urine Methadone Screen (NEGATIVE) Ur Propoxyphene Screen (NEGATIVE) Ur Barbiturates Screen (NEGATIVE) Ur Tricyclics Screen (NEGATIVE) Ur Phencyclidine Scrn (NEGATIVE) Ur Amphetamine Screen (NEGATIVE) U Methamphetamines Scrn (NEGATIVE) U Benzodiazepines Scrn (NEGATIVE) U Cocaine Metab Screen (NEGATIVE) U Marijuana (THC) Screen (NEGATIVE) Ethyl Alcohol (0.00) gm% Med Orders - Current: Current Medications Acetaminophen (Tylenol) 650 mg PO Q4H PRN PRN Reason: Fever Acetaminophen/Butalbital/Caffeine (Fioricet 325-50-40 Mg) 1 tab PO Q6H PRN PRN Reason: Headache Last Admin: 11/25/17 13:04 Dose: 1 tab Albuterol/Ipratropium (Duoneb 3.0-0.5 Mg/3 Ml) 3 ml NEB Q4H PRN PRN Reason: Shortness Of Breath/wheezing Bisacodyl (Dulcolax) 5 mg PO DAILY PRN PRN Reason: Constipation Chlordiazepoxide HCl (Librium) 25 mg PO Q8H PRN PRN Reason: Withdrawal Symptoms Clonidine HCl (Catapres) 0.1 mg PO Q4H PRN PRN Reason: Agitation Docusate Sodium (Colace) 100 mg PO BID PRN PRN Reason: Constipation Famotidine (Pepcid) 20 mg PO Q12H [facility] Last Admin: 11/25/17 09:35 Dose: 20 mg Folic Acid (Folic Acid) 1 mg PO DAILY [facility] Stop: 11/26/17 09:01 Last Admin: 11/25/17 09:35 Dose: 1 mg Haloperidol Lactate (Haldol) 2 mg IM Q4H PRN PRN Reason: Agitation Hydralazine HCl (Apresoline) 20 mg IVPUSH Q4H PRN PRN Reason: Hypertension Hydromorphone HCl (Dilaudid) 0.5 mg IVPUSH Q2H PRN PRN Reason: Pain (severe 7-10) Promethazine HCl 12.5 mg/ (Sodium Chloride) 50.5 mls @ 100 mls/hr IV Q6H PRN PRN Reason: Nausea/Vomiting Sodium Chloride (Normal Saline) 1,000 mls @ 350 mls/hr IV ASDIRECTED [facility] Last Admin: 11/25/17 13:20 Dose: 350 mls/hr Lorazepam (Ativan) 2 mg IVPUSH Q4H PRN PRN Reason: Seizures Lorazepam (Ativan) 0 mg IVPUSH Q4H PRN; Protocol PRN Reason: Withdrawal Symptoms Magnesium Sulfate (Pharmacy To Dose - Magnesium Replacement) 0 dose .XX ASDIRECTED PRN PRN Reason: RX TO WATCH MAG LEVELS Metoprolol Tartrate (Lopressor) 5 mg IVPUSH Q4H PRN PRN Reason: Tachycardia Multivitamins (Thera) 1 each PO DAILY [facility] Last Admin: 11/25/17 09:35 Dose: 1 each Ondansetron HCl (Zofran) 4 mg IV Q6H PRN PRN Reason: Nausea/Vomiting Oxycodone HCl (Oxycodone) 5 mg PO Q4H PRN PRN Reason: Pain (moderate 4-6) Last Admin: 11/25/17 13:28 Dose: 5 mg Potassium Chloride (Pharmacy To Dose - Potassium Replacement) 0 dose .XX ASDIRECTED PRN PRN Reason: RX TO WATCH K LEVELS Senna/Docusate Sodium (Senna Plus) 1 tab PO BID PRN PRN Reason: Constipation Temazepam (Restoril) 15 mg PO BEDTIME PRN PRN Reason: Sleep Discontinued Medications Famotidine (Pepcid) 20 mg IVPUSH ONETIME ONE Stop: 11/24/17 23:57 Last Admin: 11/25/17 00:26 Dose: 20 mg Hydromorphone HCl (Dilaudid) 0.5 mg IVPUSH ONETIME ONE Stop: 11/24/17 17:29 Last Admin: 11/24/17 17:35 Dose: 0.5 mg Dextrose/Lactated Ringer's (Dextrose 5%-Lactated Ringers) 1,000 mls @ 999 mls/ hr IV ASDIRECTED [facility] Last Admin: 11/24/17 18:32 Dose: 999 mls/hr Dextrose/Lactated Ringer's (Dextrose 5%-Lactated Ringers) 1,000 mls @ 999 mls/ hr IV ASDIRECTED [facility] Last Admin: 11/24/17 19:38 Dose: 999 mls/hr Dextrose/Sodium Chloride (Dextrose 5%-Normal Saline) 1,000 mls @ 999 mls/hr IV ASDIRECTED [facility] Sodium Chloride (Normal Saline) 1,000 mls @ 999 mls/hr IV ONETIME ONE Stop: 11/24/17 21:47 Last Admin: 11/24/17 20:56 Dose: 999 mls/hr Sodium Chloride (Normal Saline) 1,000 mls @ 999 mls/hr IV ONETIME ONE Stop: 11/24/17 23:02 Last Admin: 11/24/17 22:15 Dose: 999 mls/hr Sodium Chloride (Normal Saline) 1,000 mls @ 250 mls/hr IV ASDIRECTED [facility] Last Admin: 11/25/17 09:40 Dose: 250 mls/hr Thiamine HCl 200 mg/ Sodium (Chloride) 52 mls @ 100 mls/hr IV ONETIME ONE Stop: 11/24/17 23:53 Last Admin: 11/25/17 00:26 Dose: 100 mls/hr Thiamine HCl 200 mg/ Sodium (Chloride) 102 mls @ 196.154 mls/hr IV ONETIME ONE Stop: 11/25/17 01:01 Last Admin: 11/25/17 00:53 Dose: Not Given Magnesium Sulfate 2 gm/ Premix 50 mls @ 25 mls/hr IV ONETIME ONE Stop: 11/25/17 09:59 Last Admin: 11/25/17 09:42 Dose: 25 mls/hr Ibuprofen (Motrin) 400 mg PO Q6H PRN PRN Reason: Pain (mild 1-3) Ketorolac Tromethamine (Toradol) 30 mg IVPUSH ONETIME SRAVAN Last Admin: 11/24/17 17:36 Dose: 30 mg Metoclopramide HCl (Reglan) 7.5 mg IVPUSH ONETIME ONE Stop: 11/24/17 17:28 Last Admin: 11/24/17 17:34 Dose: 7.5 mg Nicotine (Habitrol) 21 mg TRDERM ONETIME ONE Stop: 11/24/17 23:17 Last Admin: 11/25/17 00:27 Dose: 21 mg Quetiapine Fumarate (Seroquel) 25 mg PO BEDTIME SRAVAN Quetiapine Fumarate (Seroquel) 25 mg PO ONETIME ONE Stop: 11/24/17 23:57 Last Admin: 11/25/17 00:27 Dose: 25 mg Topiramate (Topamax) 25 mg PO BEDTIME SRAVAN Topiramate (Topamax) 25 mg PO NOW STA Stop: 11/24/17 23:58 Last Admin: 11/25/17 00:27 Dose: 25 mg
[2017-11-25] MEDS ORDERED: QUEtiapine 25 MG Tab PO SCH (21:00)
[2017-11-25] MEDS ORDERED: Topiramate 25 MG Tab PO SCH (21:00)
--- NOTE | 2017-11-26 10:28 | PCM.DCSUM1 ---
<Sandra Watkins - Last Filed: 11/26/17 10:48> Discharge Summary - Hospital Course HPI Initial Comments: This is a 37 year old [place] Japanese ([place]) with no significant past medical hx/o who comes in for evaluation of worsening diffuse muscle cramps- localized to chest, abdomen and all extremities associated with nausea, vomiting , fatigue, malaise and generalized weakness. He denies previous hx/o it in the past. He denies alleviating or aggravating factors. Patient works in the [employer] for long hours and lately been working under extreme weather condition. He reports not drinking adequate fluids but takes a lot of stimulants. He also smokes cigarettes and chews tobacco products. He drinks alcohol at least 12 pack of beers, Tequila and +/- whiskey. He denies illicit drug use. His initial work up in ED shows a CBC remarkable for WBC of 18.44, MCV of 94.1, RDW of 45.9, neutrophils of 79%, and lymphocytes of 16%. His chemistry is remarkable for chloride of 92, anion gap of 23.6, BUN of 28, creatinine of 3.4, serum osmolality of 304, calcium of 11.8, total bilirubin of 1.4, AST of 56, creatinine kinase of 1531, total protein of 11, and albumin of 4.9. His UA is not suggestive of UTI but positive for 2+ protein, 1+ glucose and 3+ occult blood. While in ED he received at least a total 5 L of combined LR/NS fluids with marginal urine output. He is being admitted for medical management of rhabdomyolysis, acute renal failure, severe dehydration and exhaustion. Diagnosis: Stroke: No Modified Stephen Scale: No Symptoms at All Modified Stephen Scale Score: 0 - Discharge Data Discharge Date: 11/25/17 Discharge Disposition: Home, Self-Care 01 Condition: Good - Patient Summary/Data Operative Procedure(s) Performed: None Complications: None Consults: Consultations 11/24/17 23:23 Consult to Case Management [CONS] Routine Consult to Traffic Supervisor [CONS] Routine Labs Pending at D/C: None Recommended Follow-up Testing/Procedures: PCP in 1-2 weeks Planned Operative Procedure(s) after DC: None Hospital Course: Assessment/Plan Acute: Oliguric Renal Failure, improved * Likely due to ATN from Severe Volume Depletion and Heat Exhaustion * Risk factors: Poor Fluid Intake, Heavy Stimulant Use and High-Risk Work Environment * BUN 28, Cr 3.4, and egFR 21 in ED * Repeat labs this morning showed Cr of 2.8 and GFR of 26; labs performed at 13: 30 today showing improved renal function with Cr 1.4 and eGFR 57 * He received a one time dose of Ketorolac in ED * Received a total of 5 liters combined LR/NS with less than 500 Ml of urine output --> UOP improved today * Continue aggressive hydration * Avoid Nephrotoxic agents to include NSAIDs * Strict Is/Os * Renal U/S in AM r/o Renal Abnormality and Post Obstructive Uropathy --> read as resistivity indices borderline at 0.7 possibly representing mild medical renal disease Severe Dehydration and Heat Exhaustion, improved * Aggressive IV Hydration and Conservative Management --> labs and UOP improved Mild Rhabdomyolysis * Risk Factors: Strenuous/Manual Labor, Long Work Hours, Heavy Stimulant Use and Working Under Extreme Weather Conditions * CK is 1531--> 1517 --> today 1465 * UA shows 3+ occult blood * Renal function is significantly reduced for a young man in his age (Bun 28 and Cr of 3.4, GFR 21) --> labs performed at 13:30 today show improved renal function with Cr 1.4 and eGFR 57 * Myoglobin level for confirmatory test --> elevated at 1047 * Already received 5 liters of combined LR and NS with marginal urine output -- > improved UOP today * Continue aggressive IV hydration Nicotine Use Disorder * Smokes and chews tobacco * Nicotine Patch Daily PRN * Counseled on Smoking Cessation Chronic ETOH Use * Use Combined "Cerveza (12 packs), Tequila and Whiskey" * LEDY zero in ED * CIWAA Protocol * Librium/Topamax/Ativan/Clonidine and Seroquel * Ativan prn for abortive seizure Mild Hypomagnesemia * Mg 1.7 today, was 2.1 in ED * Likely 2/2 volume repletion * Pharmacy to replete Resolved: Leukocytosis Without Bands, resolved * WBC 18.44 in ED, today 8.85 * Likely 2/2 Leuko-concentration from Severe Volume Depletion * Expect to improve in AM Left Inguinal Pain, resolved * Hx/o Inguinal Hernia Repair in [place] * Suspect Pulled Inguinal Muscle; Will avoid NSAIDs for now * He is not sure if he has mesh in there * No bulging mass; no incarceration or strangulation * Surgical scar intact on examination * Abdominal CT scan in AM r/o other causes --> read as nothing acute with incidental atelectasis Plan: Admit to the floor Routine AM Labs Conservative Management: pain medication, aggressive intravenous hydration, and prn meds Avoid NSAIDs or Nephrotoxic Agents [facility] Protocol UDS and LDH --> UDS negative, LDH elevated at 291 Folic Acid, Thiamine and MVI GI PPx: H2B DVT PPx: He is ambulatory and low risk; avoid SCDs due to muscle breakdown Additional orders as above Code status: Full Hospital Course: Feranndez was admitted for management of dehydration and rhabdomyolysis. He has improved during his stay. His initial work up in ED showed a CBC remarkable for WBC of 18.44, MCV of 94.1, RDW of 45.9, neutrophils of 79%, and lymphocytes of 16%. His chemistry was remarkable for chloride of 92, anion gap of 23.6, BUN of 28, creatinine of 3.4, serum osmolality of 304, calcium of 11.8, total bilirubin of 1.4, AST of 56, creatinine kinase of 1531, total protein of 11, and albumin of 4.9. His UA was not suggestive of UTI but positive for 2+ protein , 1+ glucose and 3+ occult blood. Myoglobin returned elevated at 1047. Patient received aggressive IV hydration with initial poor UOP that was much improved on day of discharge. Repeat labs this morning showed Cr of 2.8 and GFR of 26, and labs performed at 13:30 today showing improved renal function with Cr 1.4 and eGFR 57. Leukocytosis also resolved. Magnesium declined with repeat labs and likely 2/2 volume repletion; he received Mg repletion prior to discharge. Renal U/S ordered to r/o renal abnormality and post obstructive uropathy and was read as resistivity indices borderline at 0.7 possibly representing mild medical renal disease. Patient also complained of left inguinal pain upon admission. Patient has history of inguinal hernia repair in [place]. Abdominal CT scan ordered to r/o other causes and was read as nothing acute with incidental atelectasis. In addition to the above issues, patient is also a tobacco user (smokes and chews) and drinks alcohol regularly. Patient was counseled on tobacco cessation and to reduce alcohol intake. CIWAA protocol and Librium/Topamax/Ativan/Clonidine/Seroquel ordered prn and Ativan prn for abortive seizure. New/updated medications at discharge are: [place] 325/5 1 tab po q 6 hr, Naproxen 375 mg po BID. Recommend patient see PCP in 1-2 weeks. Recommended patient consume more water and less caffeinated beverages/products. Patient stable and ready for discharge home today. Patient and agreeable to this plan. - Patient Instructions Diet: Usual Diet as Tolerated, Drink 8-10+ Glasses/Day Activity: As Tolerated Driving: May Drive Today Showering/Bathing: May Shower Notify Provider of: Fever, Increased Pain, Swelling and Redness, Nausea and/or Vomiting Other/Special Instructions: - Please take all new medications. - Resume routine activities as tolerated. - Recommend you take care of yourself and know signs of exhaustion and overwork: examples are thirst, tiredness, sleepiness, soreness or diffuse generalized aches and pains etc. - Cut down on stimulants (caffeine or caffeinated products) intake. - Follow up with PCP in 1 -2 week as needed. - Come back or seek immediate care at the nearest medical facility should your symptoms persist or get worse - Discharge Plan *PRESCRIPTION DRUG MONITORING PROGRAM REVIEWED*: Not Applicable *COPY OF PRESCRIPTION DRUG MONITORING REPORT IN PATIENT CEE: Not Applicable Prescriptions/Med Rec: Acetaminophen/HYDROcodone [[place] 325-5 MG] 1 tab PO Q6H #10 tablet Naproxen 375 mg PO BID #6 tablet. Home Medications: Home Meds Acetaminophen/HYDROcodone [[place] 325-5 MG] 1 tab PO Q6H #10 tablet 11/25/17 [Rx] Naproxen 375 mg PO BID #6 tablet. 11/25/17 [Rx] Patient Handouts: Steps to Quit Smoking, [id number], Acute Kidney Injury, Adult, Rhabdomyolysis, What You Need to Know About Alcohol Abuse and Dependence , Adult, Leukocytosis, Dehydration, Adult, [id number], Muscle Strain, Heat Illness-SportsMed, Pain Without a Known Cause Referrals: Jorge L Richards PA-C [Physician Pressroom Foreman] - 12/02/17 11:00 am (Please register at 10:30am. If this appointment time does not work, please call clinic and reschedule.) - Discharge Summary/Plan Comment DC Time >30 min.: Yes (45) - General Info Date of Service: 11/25/17 Admission Dx/Problem (Free Text: Admission Diagnosis/Problem Admission Diagnosis/Problem Dehydration Subjective Update: In to see Fernandez. He is sitting on side of bed. He appears comfortable and is not writhing or grimacing in pain. Patient reports that his pain has greatly improved. He states he has been producing more urine and urine is yellow in color. Patient denies dyspnea or chest pain. Patient is ready for discharge today. Functional Status: Reports: Pain Controlled, Tolerating Diet, Ambulating, Urinating - Review of Systems General: Reports: No Symptoms. Denies: Fever, Weakness HEENT: Reports: No Symptoms Pulmonary: Reports: No Symptoms. Denies: Shortness of Breath, Cough Cardiovascular: Reports: No Symptoms. Denies: Chest Pain, Palpitations, Dyspnea on Exertion, Edema Gastrointestinal: Reports: No Symptoms. Denies: Abdominal Pain, Constipation, Diarrhea, Nausea, Vomiting Genitourinary: Reports: No Symptoms. Denies: Dysuria, Frequency, Burning, Flank Pain Musculoskeletal: Reports: No Symptoms, Other (Muscle pain no longer present ) Skin: Reports: No Symptoms Neurological: Reports: No Symptoms. Denies: Confusion, Dizziness, Headache Psychiatric: Reports: No Symptoms. Denies: Confusion - Patient Data Vitals - Most Recent: Last Vital Signs Temp 97.7 F 11/25/17 12:17 Pulse 64 11/25/17 12:17 Resp 16 11/25/17 12:17 BP 108/61 11/25/17 12:17 Pulse Ox 98 11/25/17 12:17 Weight - Most Recent: 58.967 kg I&O - Last 24 hours: Intake & Output 11/25/17 11/26/17 11/26/17 22:59 06:59 14:59 Intake Total 3850 Output Total 700 Balance 3150 Lab Results - Last 24 hrs: Laboratory Results - last 24 hr 11/24/17 11/25/17 Range/Units 20:59 15:35 Sodium 141 (136-145) mEq/L Potassium 4.5 (3.5-5.1) mEq/L Chloride 110 H (98-107) mEq/L Carbon Dioxide 23 (21-32) mEq/L Anion Gap 12.5 (5-15) BUN 20 H (7-18) mg/dL Creatinine 1.4 H (0.7-1.3) mg/dL Est Cr Clr Drug Dosing 60.84 mL/min Estimated GFR (MDRD) 57 (>60) mL/min BUN/Creatinine Ratio 14.3 (14-18) Glucose 97 (74-106) mg/dL Calcium 7.9 L (8.5-10.1) mg/dL Creatine Kinase 1328 H (39-308) U/L Myoglobin 1047 H (17-106) ng/mL Med Orders - Current: Current Medications Discontinued Medications Acetaminophen (Tylenol) 650 mg PO Q4H PRN PRN Reason: Fever Acetaminophen/Butalbital/Caffeine (Fioricet 325-50-40 Mg) 1 tab PO Q6H PRN PRN Reason: Headache Last Admin: 11/25/17 13:04 Dose: 1 tab Albuterol/Ipratropium (Duoneb 3.0-0.5 Mg/3 Ml) 3 ml NEB Q4H PRN PRN Reason: Shortness Of Breath/wheezing Bisacodyl (Dulcolax) 5 mg PO DAILY PRN PRN Reason: Constipation Chlordiazepoxide HCl (Librium) 25 mg PO Q8H PRN PRN Reason: Withdrawal Symptoms Clonidine HCl (Catapres) 0.1 mg PO Q4H PRN PRN Reason: Agitation Docusate Sodium (Colace) 100 mg PO BID PRN PRN Reason: Constipation Famotidine (Pepcid) 20 mg PO Q12H [facility] Last Admin: 11/25/17 09:35 Dose: 20 mg Famotidine (Pepcid) 20 mg IVPUSH ONETIME ONE Stop: 11/24/17 23:57 Last Admin: 11/25/17 00:26 Dose: 20 mg Folic Acid (Folic Acid) 1 mg PO DAILY [facility] Stop: 11/26/17 09:01 Last Admin: 11/25/17 09:35 Dose: 1 mg Haloperidol Lactate (Haldol) 2 mg IM Q4H PRN PRN Reason: Agitation Hydralazine HCl (Apresoline) 20 mg IVPUSH Q4H PRN PRN Reason: Hypertension Hydromorphone HCl (Dilaudid) 0.5 mg IVPUSH ONETIME ONE Stop: 11/24/17 17:29 Last Admin: 11/24/17 17:35 Dose: 0.5 mg Hydromorphone HCl (Dilaudid) 0.5 mg IVPUSH Q2H PRN PRN Reason: Pain (severe 7-10) Dextrose/Lactated Ringer's (Dextrose 5%-Lactated Ringers) 1,000 mls @ 999 mls/ hr IV ASDIRECTED [facility] Last Admin: 11/24/17 18:32 Dose: 999 mls/hr Dextrose/Lactated Ringer's (Dextrose 5%-Lactated Ringers) 1,000 mls @ 999 mls/ hr IV ASDIRECTED [facility] Last Admin: 11/24/17 19:38 Dose: 999 mls/hr Dextrose/Sodium Chloride (Dextrose 5%-Normal Saline) 1,000 mls @ 999 mls/hr IV ASDIRECTED [facility] Sodium Chloride (Normal Saline) 1,000 mls @ 999 mls/hr IV ONETIME ONE Stop: 11/24/17 21:47 Last Admin: 11/24/17 20:56 Dose: 999 mls/hr Sodium Chloride (Normal Saline) 1,000 mls @ 999 mls/hr IV ONETIME ONE Stop: 11/24/17 23:02 Last Admin: 11/24/17 22:15 Dose: 999 mls/hr Sodium Chloride (Normal Saline) 1,000 mls @ 250 mls/hr IV ASDIRECTED [facility] Last Admin: 11/25/17 09:40 Dose: 250 mls/hr Promethazine HCl 12.5 mg/ (Sodium Chloride) 50.5 mls @ 100 mls/hr IV Q6H PRN PRN Reason: Nausea/Vomiting Thiamine HCl 200 mg/ Sodium (Chloride) 52 mls @ 100 mls/hr IV ONETIME ONE Stop: 11/24/17 23:53 Last Admin: 11/25/17 00:26 Dose: 100 mls/hr Thiamine HCl 200 mg/ Sodium (Chloride) 102 mls @ 196.154 mls/hr IV ONETIME ONE Stop: 11/25/17 01:01 Last Admin: 11/25/17 00:53 Dose: Not Given Magnesium Sulfate 2 gm/ Premix 50 mls @ 25 mls/hr IV ONETIME ONE Stop: 11/25/17 09:59 Last Admin: 11/25/17 09:42 Dose: 25 mls/hr Sodium Chloride (Normal Saline) 1,000 mls @ 350 mls/hr IV ASDIRECTED [facility] Last Admin: 11/25/17 13:20 Dose: 350 mls/hr Ibuprofen (Motrin) 400 mg PO Q6H PRN PRN Reason: Pain (mild 1-3) Ketorolac Tromethamine (Toradol) 30 mg IVPUSH ONETIME [facility] Last Admin: 11/24/17 17:36 Dose: 30 mg Lorazepam (Ativan) 2 mg IVPUSH Q4H PRN PRN Reason: Seizures Lorazepam (Ativan) 0 mg IVPUSH Q4H PRN; Protocol PRN Reason: Withdrawal Symptoms Magnesium Sulfate (Pharmacy To Dose - Magnesium Replacement) 0 dose .XX ASDIRECTED PRN PRN Reason: RX TO WATCH MAG LEVELS Metoclopramide HCl (Reglan) 7.5 mg IVPUSH ONETIME ONE Stop: 11/24/17 17:28 Last Admin: 11/24/17 17:34 Dose: 7.5 mg Metoprolol Tartrate (Lopressor) 5 mg IVPUSH Q4H PRN PRN Reason: Tachycardia Multivitamins (Thera) 1 each PO DAILY [facility] Last Admin: 11/25/17 09:35 Dose: 1 each Nicotine (Habitrol) 21 mg TRDERM ONETIME ONE Stop: 11/24/17 23:17 Last Admin: 11/25/17 00:27 Dose: 21 mg Ondansetron HCl (Zofran) 4 mg IV Q6H PRN PRN Reason: Nausea/Vomiting Oxycodone HCl (Oxycodone) 5 mg PO Q4H PRN PRN Reason: Pain (moderate 4-6) Last Admin: 11/25/17 17:54 Dose: 5 mg Potassium Chloride (Pharmacy To Dose - Potassium Replacement) 0 dose .XX ASDIRECTED PRN PRN Reason: RX TO WATCH K LEVELS Quetiapine Fumarate (Seroquel) 25 mg PO BEDTIME SRAVAN Quetiapine Fumarate (Seroquel) 25 mg PO ONETIME ONE Stop: 11/24/17 23:57 Last Admin: 11/25/17 00:27 Dose: 25 mg Senna/Docusate Sodium (Senna Plus) 1 tab PO BID PRN PRN Reason: Constipation Temazepam (Restoril) 15 mg PO BEDTIME PRN PRN Reason: Sleep Topiramate (Topamax) 25 mg PO BEDTIME SRAVAN Topiramate (Topamax) 25 mg PO NOW STA Stop: 11/24/17 23:58 Last Admin: 11/25/17 00:27 Dose: 25 mg - Exam Quality Assessment: Denies: Supplemental Oxygen General: Reports: Alert, Oriented, Cooperative, No Acute Distress HEENT: Reports: Pupils Equal, Pupils Reactive, EOMI, Mucous Membr. Moist/[place] Neck: Reports: Supple, Trachea Midline. Denies: Lymphadenopathy Lungs: Reports: Clear to Auscultation, Normal Respiratory Effort Cardiovascular: Reports: Regular Rate, Regular Rhythm, No Murmurs GI/Abdominal Exam: Normal Bowel Sounds, Soft, Non-Tender, No Distention (Male) Exam: Deferred Rectal (Males) Exam: Deferred Back Exam: Reports: Normal Inspection, Full Range of Motion Extremities: Normal Inspection, Normal Range of Motion, Non-Tender, No Pedal Edema Skin: Reports: Warm, Dry, Intact, Other (Multiple tattoos present) Neurological: Reports: No New Focal Deficit, Strength Equal Bilateral, Cranial Nerves Intact (grossly) Psy/Mental Status: Reports: Alert, Normal Affect, Normal Mood <Patria Tadeo - Last Filed: 11/26/17 14:53> Discharge Summary - Discharge Diagnosis/Problem(s) (1) Acute renal failure (ARF) SNOMED Code(s): 09475481 ICD Code: N17.9 - ACUTE KIDNEY FAILURE, UNSPECIFIED Status: Acute (2) Rhabdomyolysis SNOMED Code(s): 720373856 ICD Code: M62.82 - RHABDOMYOLYSIS Status: Acute (3) Heat exhaustion SNOMED Code(s): 46688200 ICD Code: T67.5XXA - HEAT EXHAUSTION, UNSPECIFIED, INITIAL ENCOUNTER Status : Acute Qualifiers: Encounter type: initial encounter Qualified Code(s): T67.5XXA - Heat exhaustion, unspecified, initial encounter (4) Severe dehydration SNOMED Code(s): 646449694 ICD Code: E86.0 - DEHYDRATION Status: Acute (5) Left inguinal pain SNOMED Code(s): 722237092 ICD Code: R10.32 - LEFT LOWER QUADRANT PAIN Status: Acute (6) Leukocytosis, unspecified SNOMED Code(s): 090681289, 745509405 ICD Code: D72.829 - ELEVATED WHITE BLOOD CELL COUNT, UNSPECIFIED Status: Acute Qualifiers: Leukocytosis type: unspecified Qualified Code(s): D72.829 - Elevated white blood cell count, unspecified (7) Nicotine dependence SNOMED Code(s): 88638899 ICD Code: F17.200 - NICOTINE DEPENDENCE, UNSPECIFIED, UNCOMPLICATED Status : Acute Qualifiers: Nicotine product type: cigarettes Substance use status: uncomplicated Qualified Code(s): F17.210 - Nicotine dependence, cigarettes, uncomplicated (8) Chronic alcohol use SNOMED Code(s): 622494 ICD Code: Z72.89 - OTHER PROBLEMS RELATED TO LIFESTYLE Status: Chronic - Patient Summary/Data Consults: Consultations 11/24/17 23:23 Consult to Case Management [CONS] Routine Consult to Traffic Supervisor [CONS] Routine Hospital Course: The patient was seen and examined at bedside in concert with the PA student with a application integration architect. The discharge assessment and plans were discussed and agreed upon with me. - Patient Data Vitals - Most Recent: Last Vital Signs Temp 36.5 C 11/25/17 12:17 Pulse 64 11/25/17 12:17 Resp 16 11/25/17 12:17 BP 108/61 11/25/17 12:17 Pulse Ox 98 11/25/17 12:17 I&O - Last 24 hours: Intake & Output 11/25/17 11/26/17 11/26/17 22:59 06:59 14:59 Intake Total 3850 Output Total 700 Balance 3150 Lab Results - Last 24 hrs: Laboratory Results - last 24 hr 11/24/17 11/25/17 Range/Units 20:59 15:35 Sodium 141 (136-145) mEq/L Potassium 4.5 (3.5-5.1) mEq/L Chloride 110 H (98-107) mEq/L Carbon Dioxide 23 (21-32) mEq/L Anion Gap 12.5 (5-15) BUN 20 H (7-18) mg/dL Creatinine 1.4 H (0.7-1.3) mg/dL Est Cr Clr Drug Dosing 60.84 mL/min Estimated GFR (MDRD) 57 (>60) mL/min BUN/Creatinine Ratio 14.3 (14-18) Glucose 97 (74-106) mg/dL Calcium 7.9 L (8.5-10.1) mg/dL Creatine Kinase 1328 H (39-308) U/L Myoglobin 1047 H (17-106) ng/mL Med Orders - Current: Current Medications Discontinued Medications Acetaminophen (Tylenol) 650 mg PO Q4H PRN PRN Reason: Fever Acetaminophen/Butalbital/Caffeine (Fioricet 325-50-40 Mg) 1 tab PO Q6H PRN PRN Reason: Headache Last Admin: 11/25/17 13:04 Dose: 1 tab Albuterol/Ipratropium (Duoneb 3.0-0.5 Mg/3 Ml) 3 ml NEB Q4H PRN PRN Reason: Shortness Of Breath/wheezing Bisacodyl (Dulcolax) 5 mg PO DAILY PRN PRN Reason: Constipation Chlordiazepoxide HCl (Librium) 25 mg PO Q8H PRN PRN Reason: Withdrawal Symptoms Clonidine HCl (Catapres) 0.1 mg PO Q4H PRN PRN Reason: Agitation Docusate Sodium (Colace) 100 mg PO BID PRN PRN Reason: Constipation Famotidine (Pepcid) 20 mg PO Q12H [facility] Last Admin: 11/25/17 09:35 Dose: 20 mg Famotidine (Pepcid) 20 mg IVPUSH ONETIME ONE Stop: 11/24/17 23:57 Last Admin: 11/25/17 00:26 Dose: 20 mg Folic Acid (Folic Acid) 1 mg PO DAILY [facility] Stop: 11/26/17 09:01 Last Admin: 11/25/17 09:35 Dose: 1 mg Haloperidol Lactate (Haldol) 2 mg IM Q4H PRN PRN Reason: Agitation Hydralazine HCl (Apresoline) 20 mg IVPUSH Q4H PRN PRN Reason: Hypertension Hydromorphone HCl (Dilaudid) 0.5 mg IVPUSH ONETIME ONE Stop: 11/24/17 17:29 Last Admin: 11/24/17 17:35 Dose: 0.5 mg Hydromorphone HCl (Dilaudid) 0.5 mg IVPUSH Q2H PRN PRN Reason: Pain (severe 7-10) Dextrose/Lactated Ringer's (Dextrose 5%-Lactated Ringers) 1,000 mls @ 999 mls/ hr IV ASDIRECTED [facility] Last Admin: 11/24/17 18:32 Dose: 999 mls/hr Dextrose/Lactated Ringer's (Dextrose 5%-Lactated Ringers) 1,000 mls @ 999 mls/ hr IV ASDIRECTED [facility] Last Admin: 11/24/17 19:38 Dose: 999 mls/hr Dextrose/Sodium Chloride (Dextrose 5%-Normal Saline) 1,000 mls @ 999 mls/hr IV ASDIRECTED [facility] Sodium Chloride (Normal Saline) 1,000 mls @ 999 mls/hr IV ONETIME ONE Stop: 11/24/17 21:47 Last Admin: 11/24/17 20:56 Dose: 999 mls/hr Sodium Chloride (Normal Saline) 1,000 mls @ 999 mls/hr IV ONETIME ONE Stop: 11/24/17 23:02 Last Admin: 11/24/17 22:15 Dose: 999 mls/hr Sodium Chloride (Normal Saline) 1,000 mls @ 250 mls/hr IV ASDIRECTED [facility] Last Admin: 11/25/17 09:40 Dose: 250 mls/hr Promethazine HCl 12.5 mg/ (Sodium Chloride) 50.5 mls @ 100 mls/hr IV Q6H PRN PRN Reason: Nausea/Vomiting Thiamine HCl 200 mg/ Sodium (Chloride) 52 mls @ 100 mls/hr IV ONETIME ONE Stop: 11/24/17 23:53 Last Admin: 11/25/17 00:26 Dose: 100 mls/hr Thiamine HCl 200 mg/ Sodium (Chloride) 102 mls @ 196.154 mls/hr IV ONETIME ONE Stop: 11/25/17 01:01 Last Admin: 11/25/17 00:53 Dose: Not Given Magnesium Sulfate 2 gm/ Premix 50 mls @ 25 mls/hr IV ONETIME ONE Stop: 11/25/17 09:59 Last Admin: 11/25/17 09:42 Dose: 25 mls/hr Sodium Chloride (Normal Saline) 1,000 mls @ 350 mls/hr IV ASDIRECTED [facility] Last Admin: 11/25/17 13:20 Dose: 350 mls/hr Ibuprofen (Motrin) 400 mg PO Q6H PRN PRN Reason: Pain (mild 1-3) Ketorolac Tromethamine (Toradol) 30 mg IVPUSH ONETIME [facility] Last Admin: 11/24/17 17:36 Dose: 30 mg Lorazepam (Ativan) 2 mg IVPUSH Q4H PRN PRN Reason: Seizures Lorazepam (Ativan) 0 mg IVPUSH Q4H PRN; Protocol PRN Reason: Withdrawal Symptoms Magnesium Sulfate (Pharmacy To Dose - Magnesium Replacement) 0 dose .XX ASDIRECTED PRN PRN Reason: RX TO WATCH MAG LEVELS Metoclopramide HCl (Reglan) 7.5 mg IVPUSH ONETIME ONE Stop: 11/24/17 17:28 Last Admin: 11/24/17 17:34 Dose: 7.5 mg Metoprolol Tartrate (Lopressor) 5 mg IVPUSH Q4H PRN PRN Reason: Tachycardia Multivitamins (Thera) 1 each PO DAILY [facility] Last Admin: 11/25/17 09:35 Dose: 1 each Nicotine (Habitrol) 21 mg TRDERM ONETIME ONE Stop: 11/24/17 23:17 Last Admin: 11/25/17 00:27 Dose: 21 mg Ondansetron HCl (Zofran) 4 mg IV Q6H PRN PRN Reason: Nausea/Vomiting Oxycodone HCl (Oxycodone) 5 mg PO Q4H PRN PRN Reason: Pain (moderate 4-6) Last Admin: 11/25/17 17:54 Dose: 5 mg Potassium Chloride (Pharmacy To Dose - Potassium Replacement) 0 dose .XX ASDIRECTED PRN PRN Reason: RX TO WATCH K LEVELS Quetiapine Fumarate (Seroquel) 25 mg PO BEDTIME SRAVAN Quetiapine Fumarate (Seroquel) 25 mg PO ONETIME ONE Stop: 11/24/17 23:57 Last Admin: 11/25/17 00:27 Dose: 25 mg Senna/Docusate Sodium (Senna Plus) 1 tab PO BID PRN PRN Reason: Constipation Temazepam (Restoril) 15 mg PO BEDTIME PRN PRN Reason: Sleep Topiramate (Topamax) 25 mg PO BEDTIME SRAVAN Topiramate (Topamax) 25 mg PO NOW STA Stop: 11/24/17 23:58 Last Admin: 11/25/17 00:27 Dose: 25 mg
== END 2017-11-25 18:05 | disposition home or self-care (01) ==
LOC: JD.ED 17:13 → JD.MS 22:28
PROVIDERS: ADMIT Internal Medicine; ATTEND Internal Medicine
DX: N17.9 Acute kidney failure, unspecified (principal); E86.0 Dehydration; T67.5XXA Heat exhaustion, unspecified, initial encounter; M62.82 Rhabdomyolysis; F17.210 Nicotine dependence, cigarettes, uncomplicated; F17.220 Nicotine dependence, chewing tobacco, uncomplicated; Z72.89 Other problems related to lifestyle
CPT/HCPCS: 36415; 74176; 76770; 80048; 80053; 80306; 81001; 82550; 83615; 83735; 83874; 83930; 85007; 85025; 85027; 96361; 96365; 96366; 96367; 96375; 99285; A9270; G0378; G0480; J1170; J1885; J2765; J3411; J7030; J7040; J7042; 96374; J3475

== ENCOUNTER 2017-12-08 13:33 | Emergency (ER) | payer BC ==
[2017-12-08 13:42] VITALS: BP 96/67
--- NOTE | 2017-12-08 14:32 | EDM.PDOC ---
<Dana Molina - Last Filed: 12/08/17 14:50> ED HPI GENERAL MEDICAL PROBLEM - General Chief Complaint: ENT Problem Stated Complaint: DENTAL COMPLAINT Time Seen by Provider: 12/08/17 14:07 - History of Present Illness INITIAL COMMENTS - FREE TEXT/NARRATIVE: Patient comes in today for complaint of right maxillary dental pain and swelling that began this morning. Patient describes the pain as a 5/10, throbbing pain and tenderness. Working outside in the heat makes the pain worse , nothing makes the pain better. He tried taking Aleve and Tylenol this morning , but it did not reduce his pain. Pain does not radiate. Patient denies fever , lymphadenopathy, sinus pain, throat pain, or dysphagia. Patient had a similar pain six months ago, he saw a dentist and was told he needed to have dental work done. He has been putting the dental work off until the winter when he can use his vacation time. Onset: Today, Sudden Onset Date: 12/08/17 Duration: Getting Worse Location: Reports: Face (Right sided mandibular pain) Quality: Reports: Throbbing Severity: Moderate Improves with: Reports: None Worsens with: Reports: Heat Therapy Associated Symptoms: Denies: Fever/Chills, Headaches, Loss of Appetite, Nausea/ Vomiting, Rash Treatments BOTTLE FILLER: Reports: Acetaminophen, NSAIDS - Related Data Allergies Allergy/AdvReac Type Severity Reaction Status Date / Time No Known Allergies Allergy Verified 12/08/17 13:42 Home Meds: Home Meds Acetaminophen/HYDROcodone [[place] 325-5 MG] 1 tab PO Q6H PRN #20 tablet 12/08/17 [Rx] Amoxicillin/Clavulanate K [Augmentin 875-125 MG] 1 tab PO BID #20 tablet [Rx] Chlorhexidine Gluconate 0.12% [Peridex 0.12% Rinse] 15 ml MM BID #1 bottle 12/08 [Rx] ED ROS ENT - Review of Systems Review Of Systems: See Below Constitutional: Denies: Fever, Chills HEENT: Reports: Dental Pain. Denies: Ear Pain, Sinus Problem, Throat Pain, Throat Swelling, Vertigo Respiratory: Denies: Shortness of Breath Cardiovascular: Denies: Chest Pain Neurological: Denies: Dizziness, Headache Hematologic/Lymphatic: Denies: Swollen Glands ED EXAM, ENT - Physical Exam Exam: See Below Exam Limited By: No Limitations General Appearance: Alert, WD/WN, No Apparent Distress Eye Exam: Bilateral Eye: EOMI, PERRL Ears: Normal External Exam, Normal Canal, Hearing Grossly Normal, Normal TMs Nose: Normal Inspection Mouth/Throat: Normal Oropharynx, Dental Abcess (abscess of tooth 1 and 2), Dental Tenderness (multiple caries present), Gum Swelling (Diffuse gingivitis), Other (purulent drainage visible between the oral mucosa of the inner cheek and teeth 1-2). No: Bleeding, Dental Trauma, Drooling, Dry Mucous Membrane, Hoarse Voice, Muffled Voice, Oral Ulcers, Peritonsillar Mass, Throat Pain, Tonsillar Exudates, Tonsillar Swelling Head: Atraumatic, Normocephalic. No: Sinus Tenderness Neck: Normal Inspection, Supple, Non-Tender, Full Range of Motion. No: Lymphadenopathy (L), Lymphadenopathy (R), Tender Lateral, Tender Midline Respiratory/Chest: No Respiratory Distress, Lungs Clear, Normal Breath Sounds, No Accessory Muscle Use, Chest Non-Tender Cardiovascular: Normal Peripheral Pulses, Regular Rate, Rhythm, No Edema, No Gallop, No Murmur, No Rub Neurological: Alert, Oriented, Normal Cognition, No Motor/Sensory Deficits Skin: Warm, Dry, Intact, Normal Color, No Rash Lymphatic: No Adenopathy Course - Vital Signs Last Recorded V/S: Last Vital Signs Temp 98.3 F 12/08/17 13:39 Pulse 85 12/08/17 13:39 Resp 16 12/08/17 13:39 BP 96/67 12/08/17 13:39 Pulse Ox 98 12/08/17 13:39 Departure - Departure Disposition: Home, Self-Care 01 Clinical Impression: Dental abscess, Pharyngitis - Discharge Information Prescriptions: Acetaminophen/HYDROcodone [[place] 325-5 MG] 1 tab PO Q6H PRN #20 tablet PRN Reason: Pain Amoxicillin/Clavulanate K [Augmentin 875-125 MG] 1 tab PO BID #20 tablet Chlorhexidine Gluconate 0.12% [Peridex 0.12% Rinse] 15 ml MM BID #1 bottle Instructions: Dental Abscess, [id number], Pharyngitis, [id number] Referrals: PCP,None [Primary Care Provider] - Forms: ED Department Discharge Additional Instructions: You have been seen in the emergency department today for a dental abscess. I have prescribed three medications for you, two to treat the infection and one to help reduce your dental pain. The antibiotic, Augmentin, will help treat the infection. It is very important that you take this medication, take one capsule twice a day for 10 days. This medication may cause diarrhea or stomach upset. I recommend taking a probiotic or eating yogurt to help reduce GI upset while taking this medication. I have also prescribed a mouth rinse to help treat the infection. You need to swish 15mL of this solution for 30 seconds twice a day. After swishing, spit out the solution, do not swallow it. I have also prescribed [place] that you may take as needed for pain. You may take 1 or 2 tablets every six hours as needed for pain relief. Do NOT drive or operate machinery while taking this medication. This medication is habit forming. You may also take ibuprofen with this medication. Do not take Tylenol with this medication. We cannot refill this medication, you will need to see a dentist for future pain relief. You need to see a dentist, these medications will only help temporarily until you can see a dentist. We have provided you with a list of dentists in the area. Please return if your symptoms change or worsen. <Yessi Luis - Last Filed: 12/11/17 07:23> ED HPI GENERAL MEDICAL PROBLEM - General Source of Information: Reports: Patient History Limitations: Reports: Language Barrier - History of Present Illness INITIAL COMMENTS - FREE TEXT/NARRATIVE: I have seen the patient and agree with the HPI as documented by LORAINE Collier. Right Upper Tooth/Teeth Pain Score (Numeric/FACES): 5 Past Medical History - Past Health History Medical/Surgical History: Denies Medical/Surgical History Other Gastrointestinal History: inguinal hernia Musculoskeletal History: Reports: Fracture, Other (See Below) Other Musculoskeletal History: left shoulder dislocation; left wrist fracture - Infectious Disease History Infectious Disease History: Reports: Chicken Pox - Past Surgical History GI Surgical History: Reports: Hernia, Inguinal Musculoskeletal Surgical History: Reports: Other (See Below) Social & Family History - Family History Family Medical History: Noncontributory - Tobacco Use Smoking Status *Q: Current Every Day Smoker Years of Tobacco use: 14 Packs/Tins Daily: 0.5 - Caffeine Use Caffeine Use: Reports: Coffee, Energy Drinks Other Caffeine Use: 3-4 redbull and coffee - Recreational Drug Use Recreational Drug Use: No - Living Situation & Occupation Living situation: Reports: , with Spouse Occupation: Employed ED ROS ENT - Review of Systems Review Of Systems: See Below HEENT: Reports: Dental Pain (right upper teeth), Other (denies any bacd taste to his mouth) GI/Abdominal: Denies: Nausea, Vomiting ED EXAM, ENT - Physical Exam Exam: See Below Exam Limited By: Language Barrier Course - Re-Assessments/Exams Free Text/Narrative Re-Assessment/Exam: 12/08/17 14:21 I have seen the patient and agree with the HPI, ROS and PE as documented by LORAINE Collier. Will start the patient on Augmentin today and give a few pain pills. Stressed the importance of following up with dental as soon as possible. Lists of local dentist given. Discharge instructions as documented. Departure - Departure Time of Disposition: 14:28 Condition: Fair - Discharge Information *PRESCRIPTION DRUG MONITORING PROGRAM REVIEWED*: Yes *COPY OF PRESCRIPTION DRUG MONITORING REPORT IN PATIENT CEE: No
== END 2017-12-08 14:54 | disposition home or self-care (01) ==
LOC: JD.ED 13:33
DX: K04.7 Periapical abscess without sinus (principal); J02.9 Acute pharyngitis, unspecified; F17.210 Nicotine dependence, cigarettes, uncomplicated
CPT/HCPCS: 99282

== ENCOUNTER 2019-06-23 14:42 | Emergency (ER) | payer BC ==
[2019-06-23 15:11] VITALS: BP 136/88; PULSE 71
[2019-06-23] MEDS ORDERED: Ketorolac 60 MG/2 ML SDV IM ONE (16:40)
--- NOTE | 2019-06-23 16:46 | EDM.PDOC ---
ED HPI GENERAL MEDICAL PROBLEM - General Chief Complaint: Back Pain or Injury Stated Complaint: BACK PAIN Time Seen by Provider: 06/23/19 16:24 Source of Information: Reports: Patient History Limitations: Reports: No Limitations - History of Present Illness INITIAL COMMENTS - FREE TEXT/NARRATIVE: Patient is a 38-year-old male who presents with complaints of upper back and lower back pain for the last 3 days. 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 There was no known trauma that precipitated the pain. He has no history of problems with his back or chronic back pain. He has been using Tylenol intermittently for the pain. Denies any numbness or tingling of his extremities. Denies any problems loss of bowel or bladder control. Pain is worse with movement and is tender to palpation. Treatments PECAN GATHERER: Reports: Other (see below) Other Treatments PECAN GATHERER: tylenol Back Pain Score (Numeric/FACES): 9 - Related Data Allergies Allergy/AdvReac Type Severity Reaction Status Date / Time No Known Allergies Allergy Verified 12/08/17 13:42 Home Meds: Home Meds Cyclobenzaprine [Flexeril] 5 mg PO Q8H PRN #10 tab 06/23/19 [Rx] Past Medical History - Past Health History Medical/Surgical History: Denies Medical/Surgical History Other Gastrointestinal History: inguinal hernia Musculoskeletal History: Reports: Back Pain, Chronic, Fracture, Other (See Below ) Other Musculoskeletal History: left shoulder dislocation; left wrist fracture - Infectious Disease History Infectious Disease History: Reports: Chicken Pox - Past Surgical History GI Surgical History: Reports: Hernia, Inguinal Musculoskeletal Surgical History: Reports: Other (See Below) Social & Family History - Family History Family Medical History: Noncontributory - Tobacco Use Smoking Status *Q: Current Every Day Smoker Years of Tobacco use: 10 Packs/Tins Daily: 0.5 - Caffeine Use Caffeine Use: Reports: Coffee, Soda Other Caffeine Use: 3-4 redbull and coffee - Recreational Drug Use Recreational Drug Use: No - Living Situation & Occupation Living situation: Reports: , with Spouse Occupation: Employed ED ROS GENERAL - Review of Systems Review Of Systems: Comprehensive ROS is negative, except as noted in HPI. ED EXAM,LOWER BACK PAIN/INJURY - Physical Exam Exam: See Below Exam Limited By: No Limitations General Appearance: Alert, WD/WN, No Apparent Distress Respiratory/Chest: No Respiratory Distress, Lungs Clear, Normal Breath Sounds, No Accessory Muscle Use, Chest Non-Tender Cardiovascular: Normal Peripheral Pulses, Regular Rate, Rhythm, No Edema, No Gallop, No JVD, No Murmur, No Rub Back Exam: Normal Inspection, Paraspinal Tenderness (right upper back at level of T1-T7), Vertebral Tenderness (T1-T7 L1-L4) Course - Vital Signs Last Recorded V/S: Last Vital Signs Temp 98.6 F 06/23/19 15:08 Pulse 71 06/23/19 15:08 Resp 20 06/23/19 15:08 BP 136/88 06/23/19 15:08 Pulse Ox 98 06/23/19 15:08 - Orders/Labs/Meds Meds: Medications Discontinued Medications Generic Name Dose Route Start Last Admin Trade Name Freq PRN Reason Stop Dose Admin Ketorolac Tromethamine 60 mg 06/23/19 16:40 06/23/19 16:56 Toradol IM 06/23/19 16:41 60 mg ONETIME ONE Administration Departure - Departure Time of Disposition: 16:47 Disposition: Home, Self-Care 01 Condition: Fair Clinical Impression: Strain, back Qualifiers: Encounter type: initial encounter Qualified Code(s): S39.012A - Strain of muscle, fascia and tendon of lower back, initial encounter - Discharge Information *PRESCRIPTION DRUG MONITORING PROGRAM REVIEWED*: No *COPY OF PRESCRIPTION DRUG MONITORING REPORT IN PATIENT CEE: No Prescriptions: Cyclobenzaprine [Flexeril] 5 mg PO Q8H PRN #10 tab PRN Reason: Muscle Spasm Instructions: Mid-Back Strain Referrals: PCP,None [Primary Care Provider] - Forms: ED Department Discharge, ED Return to Work/School Form Additional Instructions: You were seen in the emergency department today for pain to your middle and lower back. Based on your exam, it is likely that you strained your back and have subsequent muscle spasm surrounding your spine. You were given an injection of Toradol which is an anti-inflammatory medication while in the ER. A prescription for Flexeril has been sent to [facility]. This is a muscle relaxer. Take this as prescribed, however you cannot work after taking this medication because it is sedating so if you plan on working you should take it at night prior to going to bed. In addition, I recommend that she take ibuprofen 600 mg every 6 hours as needed for pain and inflammation. Take this with food as it can be upsetting to your stomach. You may also apply heat to the areas of pain. If you should experience any worsening symptoms, please do not hesitate to return to the emergency department. Sepsis Event Note - Evaluation Sepsis Screening Result: No Definite Risk - Focused Exam Vital Signs: Vital Signs Temp Pulse Resp BP Pulse Ox 06/23/19 15:08 98.6 F 71 20 136/88 98 Date Exam was Performed: 06/23/19 Time Exam was Performed: 17:06
== END 2019-06-23 16:59 | disposition home or self-care (01) ==
LOC: JD.ED 14:42
DX: S39.012A Strain of muscle, fascia and tendon of lower back, initial encounter (principal); S29.012A Strain of muscle and tendon of back wall of thorax, initial encounter; F17.210 Nicotine dependence, cigarettes, uncomplicated; X50.0XXA Overexertion from strenuous movement or load, initial encounter; Y99.0 Civilian activity done for income or pay
CPT/HCPCS: 96372; 99283; J1885

== ENCOUNTER 2020-11-15 19:22 | Emergency (ER) | payer SELFPAY ==
[2020-11-15 19:34] VITALS: BP 152/93; PULSE 92
[2020-11-15] MEDS ORDERED: Sodium Chloride 0.9% 1,000 ML IV STA ×2 (19:36→20:43)
[2020-11-15] MEDS ORDERED: Sodium Chloride 0.9% 10 ML Syringe FLUSH PRN (19:36)
--- NOTE | 2020-11-15 20:00 | EDM.PDOC ---
ED HPI GENERAL MEDICAL PROBLEM - General Chief Complaint: Gastrointestinal Problem Stated Complaint: VOMITED AND NOT FEELING WELL Time Seen by Provider: 11/15/20 19:28 Source of Information: Reports: Patient, RN Notes Reviewed History Limitations: Reports: No Limitations - History of Present Illness INITIAL COMMENTS - FREE TEXT/NARRATIVE: Patient is a 40-year-old male presenting to the emergency department with complaints of being dehydrated. He reports that he was working outside in the extreme heat for 13 hours today. He was drinking fluids, however he reports dizziness upon standing as well as an episode of vomiting this evening. He denies any abdominal pain. Reports that he has had symptoms similar to this in the past and after receiving a liter of fluids he felt much better. He denies any chest pain or shortness of breath. Headache Pain Score (Numeric/FACES): 8 - Related Data Allergies Allergy/AdvReac Type Severity Reaction Status Date / Time No Known Allergies Allergy Verified 11/15/20 19:33 Home Meds: Home Meds . [No Known Home Meds] 11/15/20 [History] Past Medical History - Past Health History Medical/Surgical History: Denies Medical/Surgical History Other Gastrointestinal History: inguinal hernia Musculoskeletal History: Reports: Back Pain, Chronic, Fracture, Other (See Below) Other Musculoskeletal History: left shoulder dislocation; left wrist fracture - Infectious Disease History Infectious Disease History: Reports: Chicken Pox - Past Surgical History GI Surgical History: Reports: Hernia, Inguinal Musculoskeletal Surgical History: Reports: Other (See Below) Other Musculoskeletal Surgeries/Procedures:: Left knee surgery Social & Family History - Family History Family Medical History: No Pertinent Family History - Tobacco Use Tobacco Use Status *Q: Current Every Day Tobacco User Years of Tobacco use: 10 Packs/Tins Daily: 0.5 - Caffeine Use Caffeine Use: Reports: Coffee, Energy Drinks, Soda Other Caffeine Use: 3-4 redbull and coffee - Recreational Drug Use Recreational Drug Use: No - Living Situation & Occupation Living situation: Reports: , with Spouse Occupation: Employed ED ROS GENERAL - Review of Systems Review Of Systems: See Below Constitutional: Reports: Fatigue. Denies: Fever, Chills HEENT: Reports: No Symptoms Respiratory: Reports: No Symptoms. Denies: Shortness of Breath, Pleuritic Chest Pain Cardiovascular: Reports: Lightheadedness. Denies: Chest Pain, Dyspnea on Exertion, Palpitations, Syncope Endocrine: Reports: No Symptoms GI/Abdominal: Reports: Nausea, Vomiting. Denies: Diarrhea : Reports: No Symptoms Musculoskeletal: Reports: No Symptoms Skin: Reports: No Symptoms Neurological: Reports: No Symptoms Psychiatric: Reports: No Symptoms Hematologic/Lymphatic: Reports: No Symptoms Immunologic: Reports: No Symptoms ED EXAM, GI/ABD - Physical Exam Exam: See Below Exam Limited By: No Limitations General Appearance: Alert, WD/WN, No Apparent Distress Respiratory/Chest: No Respiratory Distress, Lungs Clear, Normal Breath Sounds, No Accessory Muscle Use, Chest Non-Tender Cardiovascular: Normal Peripheral Pulses, Regular Rate, Rhythm, No Edema, No Gallop, No JVD, No Murmur, No Rub GI/Abdominal Exam: Normal Bowel Sounds, Soft, Non-Tender, No Organomegaly, No Distention, No Abnormal Bruit, No Mass, Pelvis Stable Extremities: Normal Inspection, Normal Range of Motion, Non-Tender, Normal Capillary Refill, No Pedal Edema Neurological: Alert, Oriented, CN II-XII Intact, Normal Cognition, Normal Gait, Normal Reflexes, No Motor/Sensory Deficits Psychiatric: Normal Affect, Normal Mood Skin Exam: Warm, Dry, Intact, Normal Color, No Rash Course - Vital Signs Last Recorded V/S: Last Vital Signs Temp 97.8 F 11/15/20 19:31 Pulse 92 11/15/20 19:31 Resp 16 11/15/20 19:31 BP 152/93 H 11/15/20 19:31 Pulse Ox 99 11/15/20 19:31 - Orders/Labs/Meds Orders: Active Orders 24 hr Category Date Time Status Peripheral IV Insertion Adult [OM.PC] Stat Oth 11/15/20 19:36 Ordered Labs: Laboratory Tests 11/15/20 11/15/20 11/15/20 Range/Units 19:43 19:43 19:43 WBC 10.77 H (4.23-9.07) K/mm3 RBC 4.96 (4.63-6.08) M/mm3 Hgb 16.7 D (13.7-17.5) gm/dl Hct 48.5 (40.1-51.0) % MCV 97.8 H (79.0-92.2) fl MCH 33.7 H (25.7-32.2) pg MCHC 34.4 (32.2-35.5) g/dl RDW Std Deviation 47.1 H (35.1-43.9) fL Plt Count 259 (163-337) K/mm3 MPV 9.7 (9.4-12.3) fl Neut % (Auto) 63.6 (34.0-67.9) % Lymph % (Auto) 22.2 (21.8-53.1) % [place] % (Auto) 13.1 H (5.3-12.2) % Eos % (Auto) 0.7 L (0.8-7.0) Baso % (Auto) 0.2 (0.1-1.2) % Neut # (Auto) 6.85 H (1.78-5.38) K/mm3 Lymph # (Auto) 2.39 (1.32-3.57) K/mm3 [place] # (Auto) 1.41 H (0.30-0.82) K/mm3 Eos # (Auto) 0.08 (0.04-0.54) K/mm3 Baso # (Auto) 0.02 (0.01-0.08) K/mm3 Manual Slide Review Normal smear Sodium 139 (136-145) mEq/L Potassium 4.0 (3.5-5.1) mEq/L Chloride 97 L D (98-107) mEq/L Carbon Dioxide 28 (21-32) mEq/L Anion Gap 18.0 H (5-15) BUN 25 H (7-18) mg/dL Creatinine 2.3 H (0.7-1.3) mg/dL Est Cr Clr Drug Dosing 33.23 mL/min Estimated GFR (MDRD) 32 (>60) mL/min BUN/Creatinine Ratio 10.9 L (14-18) Glucose 93 (70-99) mg/dL Calcium 9.6 D (8.5-10.1) mg/dL Total Bilirubin 1.6 H (0.2-1.0) mg/dL AST 29 (15-37) U/L ALT 41 (16-63) U/L Alkaline Phosphatase 79 (46-116) U/L Creatine Kinase 379 H (39-308) U/L Total Protein 8.4 H (6.4-8.2) g/dl Albumin 4.6 (3.4-5.0) g/dl Globulin 3.8 gm/dL Albumin/Globulin Ratio 1.2 (1-2) Meds: Medications Discontinued Medications Generic Name Dose Route Start Last Admin Trade Name Elizabeth PRN Reason Stop Dose Admin Sodium Chloride 1,000 mls @ 999 mls/hr 11/15/20 19:36 11/15/20 19:45 Normal Saline IV 11/15/20 20:36 999 mls/hr NOW STA Administration Sodium Chloride 1,000 mls @ 999 mls/hr 11/15/20 20:43 11/15/20 20:47 Normal Saline IV 11/15/20 21:43 999 mls/hr NOW STA Administration Sodium Chloride 10 ml 11/15/20 19:36 11/15/20 19:46 Sodium Chloride 0.9% 10 Ml Syringe FLUSH 10 ml ASDIRECTED PRN Administration Keep Vein Open - Re-Assessments/Exams Free Text/Narrative Re-Assessment/Exam: Patient is a 40-year-old male presenting to the emergency department with complaints of dehydration. Reports he was working outside in the extreme heat for 13 hours today. Reports lightheadedness upon standing. Of one episode of vomiting. Denies any chest pain or shortness of breath. I have ordered blood work and a 1 L bolus of normal saline. 11/15/20 20:41 Hematology significant for WBC minimally elevated 10.77, chloride 97, and a gap 18, BUN 25 creatinine 2.3, total bili 1.6. On review of patient's past medical records, he does have a history of chronic kidney disease as well as a history of rhabdomyolysis. CPK is minimally elevated at 397. Patient is feeling better after the first liter of IV fluids, however feel he would benefit from a second liter. I ordered a second liter of IV fluids. 11/15/20 21:48 Patient has finished a second liter of IV fluids and would like to go home. Discussed with him that I would recommend establishing care with a primary care provider for ongoing monitoring of his chronic kidney disease. I will send referral to Josie Phan NP. Recommend follow-up next week to have blood work rechecked and establish care. He agreed. Discharge instructions as documented. Departure - Departure Time of Disposition: 21:48 Disposition: Home, Self-Care 01 Condition: Good Clinical Impression: Dehydration, mild Chronic renal insufficiency, stage III (moderate) Qualifiers: Chronic kidney disease stage 3 subtype: unspecified whether 3a or 3b Qualified Code(s): N18.30 - Chronic kidney disease, stage 3 unspecified - Discharge Information *PRESCRIPTION DRUG MONITORING PROGRAM REVIEWED*: No *COPY OF PRESCRIPTION DRUG MONITORING REPORT IN PATIENT CEE: No Instructions: Dehydration, Adult, [id number], Chronic Kidney Disease, Adult, [id number] Referrals: Josie Silva NP [Nurse Practitioner] - Forms: ED Department Discharge Additional Instructions: You were seen in the emergency department today for feeling dehydrated. Blood work was completed and show that you were dehydrated. While in the ER, you received 2 L of IV fluid which you state did make you feel better. As we discussed, you do have chronic kidney disease and you would benefit from establishing care with a primary care provider. Referral has been sent to Josie Silva NP. Recommend calling to schedule follow-up appointment with her for next week to have your blood work rechecked and to establish care. If you should experience any new or worsening symptoms, please do not hesitate to return to the emergency department for reevaluation. Sepsis Event Note (ED) - Evaluation Sepsis Screening Result: No Definite Risk - My Orders Last 24 Hours: My Active Orders 11/15/20 19:36 Peripheral IV Insertion Adult [OM.PC] Stat - Assessment/Plan Last 24 Hours: My Active Orders 11/15/20 19:36 Peripheral IV Insertion Adult [OM.PC] Stat
== END 2020-11-15 21:56 | disposition home or self-care (01) ==
LOC: JD.ED 19:22
DX: E86.0 Dehydration (principal); N18.30 Chronic kidney disease, stage 3 unspecified; Z72.0 Tobacco use
CPT/HCPCS: 36415; 80053; 82550; 85025; 99284; J7030

== ENCOUNTER 2021-07-04 10:38 | Emergency (ER) | payer SELFPAY ==
[2021-07-04 11:19] VITALS: BP 148/103; PULSE 76
[2021-07-04] MEDS ORDERED: Amoxicillin/Clavulanate K 875-125 MG Tab PO ONE (11:35)
[2021-07-04] MEDS ORDERED: Ketorolac 60 MG/2 ML SDV IM ONE (11:35)
== END 2021-07-04 12:08 | disposition home or self-care (01) ==
LOC: JD.ED 10:38
DX: K02.9 Dental caries, unspecified (principal); Z72.0 Tobacco use
CPT/HCPCS: 96372; 99282; A9270; J1885; 99284

== ENCOUNTER 2022-01-30 12:47 | Emergency (ER) | payer SELFPAY ==
[2022-01-30 13:04] VITALS: BP 118/87; PULSE 80
== END 2022-01-30 13:55 | disposition home or self-care (01) ==
LOC: JD.ED 12:47
DX: M54.6 Pain in thoracic spine (principal); F17.210 Nicotine dependence, cigarettes, uncomplicated; Z79.899 Other long term (current) drug therapy; X50.0XXA Overexertion from strenuous movement or load, initial encounter; Y99.0 Civilian activity done for income or pay
CPT/HCPCS: 99283

== ENCOUNTER 2023-08-30 17:21 | Emergency (ER) | payer SELFPAY ==
[2023-08-30] MEDS: Sodium Chloride 0.9% 10 ML Syringe FLUSH PRN (18:20)
[2023-08-30 18:30] LABS: BASOPHILS PERCENT AUTO 0.2 % (0.0-1.0); EOSINOPHILS ABSOLUTE AUTO 0.1 K/mm3 (0.0-0.4); EOSINOPHILS PERCENT AUTO 1.1 % (0.0-6.0); HEMATOCRIT 42.7 % (42.0-52.0); HEMOGLOBIN 14.9 gm/dl (14.0-18.0); IMMATURE GRAN ABSOLUTE AUTO 0.02 K/mm3 (0.00-0.05); IMMATURE GRAN PERCENT AUTO 0.2 % (0.0-0.4); LYMPHOCYTES ABSOLUTE AUTO 1.9 K/mm3 (1.0-4.8); LYMPHOCYTES PERCENT AUTO 20.2 % (24.0-44.0); MEAN CORPUSCULAR HGB CONC 34.9 g/dl (32.0-36.0); MEAN CORPUSCULAR VOLUME 100.2 fl (83.0-99.0); MEAN PLATELET VOLUME 10.1 fl (9.4-12.4); MONOCYTES PERCENT AUTO 10.4 % (0.0-8.0); NEUTROPHILS ABSOLUTE AUTO 6.2 K/mm3 (1.8-7.7); NEUTROPHILS PERCENT AUTO 67.9 % (41.0-71.0); PLATELET COUNT,PLT 173 K/mm3 (150-400); RED BLOOD CELL COUNT 4.26 M/mm3 (4.52-5.90); WHITE BLOOD CELL COUNT,WBC 9.14 K/mm3 (3.9-11.3)
[2023-08-30 18:35] LABS: APPEARANCE,URINE SLT CLOUDY (Clear); BILIRUBIN,URINE NEGATIVE (Negative); COLOR,URINE YELLOW (Yellow); GLUCOSE,URINE NEGATIVE (Negative); KETONES,URINE NEGATIVE (Negative); LEUKOCYTE ESTERASE,URINE 1+ (Negative); NITRITE,URINE POSITIVE (Negative); OCCULT BLOOD,URINE 2+ (Negative); PROTEIN,URINE 3+ (Negative)
[2023-08-30 18:54] LABS: A/G RATIO 0.9 (1-2); ALBUMIN 3.4 g/dl (3.4-5.0); ANION GAP 12.5 (5-15); BILIRUBIN TOTAL 1.3 mg/dL (0.2-1.0); EST CRCL DRUG DOSING (CG) 80.52 mL/min; MAGNESIUM 1.9 mg/dL (1.8-2.4); POTASSIUM,K 3.5 mEq/L (3.5-5.1); PROTEIN TOTAL,TP 7.3 g/dl (6.4-8.2)
[2023-08-30 18:59] LABS: BACTERIA,URINE MANY /hpf (FEW); MUCUS,URINE FEW /hpf (FEW); RBC,URINE 30-40 /hpf (0-5); SQUAMOUS EPITHELIAL CELLS,UR 0-5 /hpf (0-5); WBC,URINE >100 /hpf (0-5)
[2023-08-30] MEDS: Pantoprazole 40 MG Vial IVPUSH ONE (19:13)
[2023-08-30] MEDS: Sucralfate Suspension 1 GM/10 ML Cup PO ONE (19:13)
[2023-08-30] MEDS: Doxycycline Monohydrate 100 MG Cap PO ONE (20:31)
[2023-08-30 22:37] VITALS: BP 145/102; PULSE 81
== END 2023-08-30 20:36 | disposition home or self-care (01) ==
LOC: JD.ED 17:21
DX: N30.01 Acute cystitis with hematuria (principal); F17.210 Nicotine dependence, cigarettes, uncomplicated; Z86.19 Personal history of other infectious and parasitic diseases
CPT/HCPCS: 36415; 80053; 81001; 83735; 85025; 96374; 99283; A9270; C9113; J3490

== ENCOUNTER 2023-10-05 09:18 | Emergency (ER) | payer SELFPAY ==
[2023-10-05] MEDS: Ketorolac 60 MG/2 ML SDV IM ONE (10:04)
[2023-10-05 10:45] VITALS: BP 151/110; PULSE 77
== END 2023-10-05 10:15 | disposition home or self-care (01) ==
LOC: JD.ED 09:18
DX: K02.9 Dental caries, unspecified (principal); R59.1 Generalized enlarged lymph nodes
CPT/HCPCS: 96372; 99283; J1885

== ENCOUNTER 2024-11-17 07:22 | Emergency (ER) | payer SELFPAY ==
[2024-11-17] MEDS: Ondansetron 4 MG/2 ML SDV IVPUSH ONE (07:57)
[2024-11-17] MEDS: Sodium Chloride 0.9% 10 ML Syringe FLUSH PRN (07:59)
[2024-11-17 08:06] LABS: BASOPHILS ABSOLUTE AUTO 0.0 K/mm3 (0.0-0.2); BASOPHILS PERCENT AUTO 0.4 % (0.0-1.0); EOSINOPHILS ABSOLUTE AUTO 0.2 K/mm3 (0.0-0.4); EOSINOPHILS PERCENT AUTO 2.8 % (0.0-6.0); IMMATURE GRAN ABSOLUTE AUTO 0.04 K/mm3 (0.00-0.05); IMMATURE GRAN PERCENT AUTO 0.6 % (0.0-0.4); LYMPHOCYTES ABSOLUTE AUTO 2.7 K/mm3 (1.0-4.8); LYMPHOCYTES PERCENT AUTO 36.5 % (24.0-44.0); MEAN PLATELET VOLUME 10.2 fl (9.4-12.4); MONOCYTES ABSOLUTE AUTO 1.1 K/mm3 (0.0-0.8); MONOCYTES PERCENT AUTO 15.0 % (0.0-8.0); NEUTROPHILS ABSOLUTE AUTO 3.3 K/mm3 (1.8-7.7); NEUTROPHILS PERCENT AUTO 44.7 % (41.0-71.0); NRBC ABSOLUTE 0.00 (0.00-0.02); NRBC PERCENT 0.0 % (0.0-0.2); PLATELET COUNT,PLT 261 K/mm3 (150-400); RED BLOOD CELL COUNT 5.45 M/mm3 (4.52-5.90); WHITE BLOOD CELL COUNT,WBC 7.27 K/mm3 (3.9-11.3)
[2024-11-17 08:35] LABS: A/G RATIO 1.0 (1-2); ALANINE AMINOTRANSFERASE,ALT 40.0 U/L (16-63); ASPARTATE AMNIOTRANSFERASE,AST 32.0 U/L (15-37); BILIRUBIN TOTAL 1.2 mg/dL (0.2-1.0); BLOOD UREA NITROGEN,BUN 26.0 mg/dL (7-18); CARBON DIOXIDE,CO2 23.0 mEq/L (21-32); CHLORIDE,CL 98.0 mEq/L (98-107); CREATINE KINASE,CK 318.0 U/L (39-308); CREATININE 1.3 mg/dL (0.7-1.3); EST CRCL DRUG DOSING (CG) 62.9 mL/min; ESTIMATED GFR 70.0 mL/min (>60); GLUCOSE RANDOM 118.0 mg/dL (70-99); POTASSIUM,K 3.6 mEq/L (3.5-5.1); PROTEIN TOTAL,TP 8.5 g/dl (6.4-8.2); SODIUM,NA 133.0 mEq/L (136-145)
[2024-11-17 08:37] VITALS: BP 125/84; PULSE 60
[2024-11-17 08:47] LABS: LACTIC ACID 0.8 mmol/L (0.4-2.0)
[2024-11-17 09:13] LABS: APPEARANCE,URINE CLEAR (Clear); GLUCOSE,URINE NEGATIVE (Negative); OCCULT BLOOD,URINE 1+ (Negative)
[2024-11-17 09:31] LABS: SQUAMOUS EPITHELIAL CELLS,UR 0-5 /hpf (0-5)
== END 2024-11-17 10:10 | disposition home or self-care (01) ==
LOC: JD.ED 07:22
DX: T67.5XXA Heat exhaustion, unspecified, initial encounter (principal); E86.0 Dehydration; R74.8 Abnormal levels of other serum enzymes
CPT/HCPCS: 36415; 80053; 81001; 82550; 83605; 83735; 85025; 87086; 93005; 96361; 96374; 99284; J2405; J7030